=== PATIENT | female | born 1930 | race Caucasian/White ===

== ENCOUNTER 2017-06-08 13:04 | Inpatient (IN) | payer MEDICARE, OTHER ==
[~2017-06-08] VITALS: Ht 152.4 cm; Wt 48.9 kg
[~2017-06-08 13:04] MED LIST: ASPI81TA85 PO; BACT800T5 PO; CART300C PO; DULC5TAB PO; FLOM5CAP PO; HYDR-3713 PO; HYDR25TAB PO; LISI30TA4 PO; LISI40TAB PO; NORV5TAB PO; PERCOCET PO; ZOFR4TAB3 PO
[2017-06-08 14:45] VITALS: BP 168/78
[2017-06-08] MEDS ORDERED: ACETAMINOPHEN TAB 650MG DOSE (2X325MG) PO PRN (15:15)
[2017-06-08] MEDS ORDERED: ONDANSETRON 4MG/2ML VIAL (J2405) IV PRN (15:15)
[2017-06-08] MEDS: PERCOCET 5MG/325MG TAB PO PRN ×2 (15:38→21:54)
[2017-06-08 16:00] VITALS: BP 193/80
[2017-06-08 16:07] LABS: BASO % 0.3 % (0.0-1.0); EOS # 0.1 10^3/uL (0.0-0.50); EOS % 0.8 % (0.0-3.0); IMMATURE GRANULOCYTE % 0.3 % (0-0); LYMPH # 1.1 10^3/uL (1.5-4.5); LYMPH % 9.2 % (24.0-44.0); MEAN CORPUSCULAR HEMOGLOBIN 31.3 pg (27.0-33.0); MEAN CORPUSCULAR HGB CONC 32.6 g/dl (32.0-36.5); MEAN CORPUSCULAR VOLUME 95.8 fl (80.0-96.0); MONO # 1.1 10^3/uL (0.0-0.8); MONO % 9.4 % (0.0-5.0); NEUTROPHILS # 9.6 10^3/uL (1.8-7.7); PLATELET COUNT, AUTOMATED 281 10^3/uL (150-450); RED CELL DISTRIBUTION WIDTH 13.4 % (11.5-14.5)
[2017-06-08 16:17] LABS: INR 0.97
[2017-06-08 16:45] LABS: ALBUMIN/GLOBULIN RATIO 0.94 (1.00-1.93); ALKALINE PHOSPHATASE 86 U/L (45-117); ALT/SGPT 34 U/L (12-78); ANION GAP 6 MEQ/L (8-16); AST/SGOT 21 U/L (7-37); BILIRUBIN,TOTAL 0.5 MG/DL (0.2-1.0); BLOOD UREA NITROGEN 33 MG/DL (7-18); CALCIUM LEVEL 8.8 MG/DL (8.8-10.2); CARBON DIOXIDE LEVEL 26 MEQ/L (21-32); CHLORIDE LEVEL 111 MEQ/L (98-107); CREATININE FOR GFR 1.49 MG/DL (0.55-1.02); GLOMERULAR FILTRATION RATE 35.4 (>32); GLUCOSE, FASTING 95 MG/DL (83-110); MAGNESIUM LEVEL 1.8 MG/DL (1.8-2.4); POTASSIUM SERUM 4.9 MEQ/L (3.5-5.1); SODIUM LEVEL 143 MEQ/L (136-145); T UPTAKE 36 % (30-39); TOTAL PROTEIN 6.2 GM/DL (6.4-8.2)
[2017-06-08] MEDS ORDERED: AMLO5TAB2 PO (17:17)
[2017-06-08] MEDS ORDERED: CHOL4PW PO (17:17)
[2017-06-08] MEDS ORDERED: FLORCAP10 PO (17:17)
[2017-06-08] MEDS ORDERED: LISI40TAB PO (17:17)
[2017-06-08] MEDS ORDERED: PROZ10CA7 PO (17:17)
[2017-06-08] MEDS ORDERED: ARTI99.0 OU (17:17)
--- NOTE | 2017-06-08 17:35 | HPEPDOC ---
General Date of Admission Jun 08, 2017 at 15:00 Primary Care Physician: A Other Providers Cherie Brito Chief Complaint The patient is a 87-year-old female admitted with a reason for visit of Miltiple Rib Fractures. History of Present Illness PCP is Dr. Weiner Ms. Sen is an 87 y/o female with past medical history of hepatitis C, HTN and depression who presents as a transfer patient from [facility] due to multiple left sided rib fracture and hydrothorax. Two days ago the patient was walking outside her assisted living facility with her walker when the wheel went off the edge and she fell onto a small metal trash can which made contact with her upper left thorax/rib cage. She did not hit her head, suffer LOC nor did she have any CP, SOB, palpitations, light headedness or change in vision nor headache prior to the fall. She states it was entirely a "mechanical fall". She was taken to [facility] today after the pain in her left rib cage was progressively getting worse with ambulation/movement and inspiration. [facility] did not have the capability to handle such a case so the decision was made to have her transferred to [facility] so that Dr. Garcia could evaluate her. Denies n/v, muscle aches or chills, denies recent fevers or abdominal pain. She usually has loose stool as she takes cholestyramine powder with her food. Denies increase frequency in urination, nor pain with urination or blood in urine. Denies blood in or dark stools. 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 She does admit that her left foot hurts and is a little bit swollen from where she tripped, she may have rolled on it. She has no history of seizure, CO or stroke and did not have bowel or bladder incontinence during any of her falls. She states currently that her left rib cage area on the side and back hurt when she moves or changes position or when she takes a deep breath in, it is a sharp pain and quickly abates. She has not been weak nor fatigued lately. She is compliant with her medications and denies any forgetfullness nor change in mentation, as per her daughter. She states she has never drank alcohol or smoked and denies history of IVDU., states that greater than 50 years ago she was diagnosed with Hepatitis C from "eating bad seafood in [place]"., she has never received treatment. Home Medications Scheduled (Florajen3) 1 Cap Cap, 1 CAP PO DAILY, (Reported) Amlodipine Besylate (Amlodipine Besylate) 5 Mg Tab, 5 MG PO DAILY, (Reported) Aspirin (Aspir-81) 81 Mg Tab, 81 MG PO DAILY, (Reported) Cholestyramine (Cholestyramine) 4 Gm Pow, 4 GM PO AC, (Reported) Fluoxetine HCl (Prozac) 10 Mg Cap, 10 MG PO DAILY, (Reported) Hydrochlorothiazide (Hydrochlorothiazide) 25 Mg Tab, 25 MG PO 2XW, (Reported) TUES & THURS Lisinopril (Lisinopril) 40 Mg Tab, 40 MG PO DAILY, (Reported) Scheduled PRN Artificial Tears (Artificial Tears) 1.4 % Alesha, 1 DROP OU QID PRN for DRY EYES, ( Reported) Allergies Coded Allergies: No Known Allergies (Unverified , 03/28/15) Past Medical History Medical History htn depression Surgical History appendectomy hysterectomy cholecystectomy b/l cataract surgery Family History Significant Family History: No pertinent family hx Social History * Smoker: Denies Drugs: denies Recent Travel/Sick Contacts: Denies: Recent travel Psychosocial History: No pertinent psych hx Review of Symptoms Constitutional: Reports: Malaise, Denies: Chills, Fever, Night Sweats, Weakness, Fatigue, Weight Loss Eyes: Denies: Pain ENT: Denies: Head Aches Skin: Denies: Rash, Lesions, Jaundice, Bruising Pulmonary: Denies: Dyspnea, Cough Cardiovascular: Denies: Chest Pain, Palpitations, Orthopnea, Edema, Lt Headedness Gastrointestinal: Denies: Nausea, Vomiting, Abdominal Pain, Diarrhea, Constipation Genitourinary: Denies: Dysuria Hematologic: Denies: Bruising, Bleeding Excessively, Petecchia, Purpura Endocrine: Denies: Polydipsia Musculoskeletal: Reports: Foot Pain (left foot swollen and achey all over), Other Symptoms (pain to inspiration and movement of left upper rib cage side and back) Neurological: Denies: Weakness, Numbness, Incoordination, Change in speech Psych: Reports: Mood Normal Physical Examination General Exam: Positive: Alert, Cooperative, Moderate Distress (from pain in rib cage) Eye Exam: Positive: Conjunctiva & lids normal, EOMI, Negative: Sclera icteric, Ptosis ENT Exam: Positive: Atraumatic, Mucous membr. moist/pink, Pharynx Normal, Tongue Midline, Nares Patent, Negative: Pharyngeal Edema Neck Exam: Positive: Supple Chest Exam: Positive: Normal air movement, Other (left upper rib cage tenderness along lateral and superior posterior aspect of thorax), Negative: Rales, Rhonchi, Wheezing, Diminished Heart Exam: Positive: Rate Normal, Normal S1, Normal S2, Negative: Gallops, Murmurs, Rubs Telemetry: Positive: No significant arrhythmia Abdomen Exam: Positive: Normal bowel sounds, Soft, Negative: Tenderness, Hepatospenomegaly, Mass Extremity Exam: Positive: Normal pulses, Tenderness (left foot), Swelling ( left foot), Negative: Clubbing, Cyanosis, Edema Skin Exam: Negative: Rash, Breakdown Neuro Exam: Positive: Normal Speech Psych Exam: Positive: Mental status NL Vital Signs Vital Signs Date Time Temp Pulse Resp B/P (MAP) Pulse Ox O2 Delivery O2 Flow Rate FiO2 06/08/17 16:15 16 06/08/17 16:00 97.6 65 193/80 (117) 97 Nasal Cannula 2.0 Laboratory Data Labs 24H Laboratory Tests 2 06/08/17 15:58: Immature Granulocyte % (Auto) 0.3H, White Blood Count 12.0H, Red Blood Count 3.55L, Hemoglobin 11.1L, Hematocrit 34.0L, Mean Corpuscular Volume 95.8, Mean Corpuscular Hemoglobin 31.3, Mean Corpuscular Hemoglobin Concent 32.6, Red Cell Distribution Width 13.4, Platelet Count 281, Neutrophils (%) (Auto) 80.0H, Lymphocytes (%) (Auto) 9.2L, Monocytes (%) (Auto) 9.4H, Eosinophils (%) (Auto) 0.8, Basophils (%) (Auto) 0.3, Neutrophils # (Auto) 9.6H, Lymphocytes # (Auto) 1.1L, Monocytes # (Auto) 1.1H, Eosinophils # (Auto) 0.1, Basophils # (Auto) 0.0 , Immature Granulocyte # (Auto) 0.0, Nucleated Red Blood Cells % (auto) 0.0, Prothrombin Time 13.0, Prothromb Time International Ratio 0.97, Activated Partial Thromboplast Time 25.4L, Anion Gap 6L, Glomerular Filtration Rate 35.4, Blood Urea Nitrogen 33H, Creatinine 1.49H, Sodium Level 143, Potassium Level 4.9 , Chloride Level 111H, Carbon Dioxide Level 26, Calcium Level 8.8, Aspartate Amino Transf (AST/SGOT) 21, Alanine Aminotransferase (ALT/SGPT) 34, Total Creatine Kinase 94, Alkaline Phosphatase 86, Total Bilirubin 0.5, Total Protein 6.2L, Albumin 3.0L, Magnesium Level 1.8, Creatine Kinase MB 1.0, Creatine Kinase MB Relative Index 1.06, Troponin I < 0.02, Albumin/Globulin Ratio 0.94L, Thyroid Stimulating Hormone (TSH) 3.210, Free Thyroxine Index 3.6, Thyroxine (T4 ) 10.0, Triiodothyronine (T3) Uptake 36 CBC/BMP Laboratory Tests 06/08/17 15:58 Red Blood Count 3.55 L, Mean Corpuscular Volume 95.8, Mean Corpuscular Hemoglobin 31.3, Mean Corpuscular Hemoglobin Concent 32.6, Red Cell Distribution Width 13.4, Neutrophils (%) (Auto) 80.0 H, Lymphocytes (%) (Auto) 9.2 L, Monocytes (%) (Auto) 9.4 H, Eosinophils (%) (Auto) 0.8, Basophils (%) ( Auto) 0.3, Neutrophils # (Auto) 9.6 H, Lymphocytes # (Auto) 1.1 L, Monocytes # ( Auto) 1.1 H, Eosinophils # (Auto) 0.1, Basophils # (Auto) 0.0, Calcium Level 8.8 , Aspartate Amino Transf (AST/SGOT) 21, Alanine Aminotransferase (ALT/SGPT) 34, Total Creatine Kinase 94, Alkaline Phosphatase 86, Total Bilirubin 0.5, Total Protein 6.2 L, Albumin 3.0 L Assessment/Plan 87 y/o female transferred from [facility] with multiple rib fracture and hydrothorax. 1. Multiple rib fracture with associated hydrothorax Have review images [facility] Dr. Garcia has been consulted, greatly appreciate his help. Will see the patient tonight. The patient will have pain control with morphine and percocet. For expansion of the lung ,will schedule ez pap and incentive spirometry. PT/OT consulted as well. Dr. Garcia will decide if epidural is necessary. C/w oxygen therapy orders. Will order b/l Doppler u/s to r/o DVT. 2. HTN -can continue with patients home medications of amlodipine 5 mg daily, lisinopril 40 mg daily and baby aspirin. 3. Depression -can continue with patients home fluoxetine 10 mg daily 4. Will hold on DVT prophylaxis until tomorrow, in case patient will need surgical intervention. SCD/TEDS for now. Plan / VTE VTE Prophylaxis Ordered?: No (hold off untill tomorrow, patient may need surgicial intervention) GME ATTESTATION GME ATTESTATION My faculty preceptor for this patient encounter was physically present during the encounter and was fully available. All aspects of the patient interview, examination, medical decision making process, and medical care plan development were reviewed and approved by the faculty preceptor. The faculty preceptor is aware and concurs with the plan as stated in the body of this note and will attest to such by his/her cosignature. ATTENDING NOTE I have both independently examined this patient as well as reviewed the H&P. I have discussed in detail with the resident the findings and plan of treatment as documented in the residents note. I will continue to follow the patient and offer further guidance to the patients care as necessary during this hospital stay. CARA Diaz MD, DO Jun 08, 2017 17:35 DYLAN MAURER MD Jun 11, 2017 11:41
[2017-06-08] MEDS ORDERED: POLYVINYL ALCOHOL OPHTH SOLN 15 ML(LIQUITEARS) OU PRN (17:45)
[2017-06-08] MEDS: LR 1,000 ML IV SCH (17:50)
[2017-06-08] MEDS: ASPIRIN 81 MG ENTERIC TAB PO SCH (17:58)
[2017-06-08] MEDS: amLODIPine 5 MG TAB PO SCH (17:59)
[2017-06-08] MEDS ORDERED: LEVALBUTEROL 1.25 MG/0.5 ML CONCENTRATE NEB NEB PRN (18:30)
[2017-06-08 18:32] LABS: ABG BASE EXCESS -3.1 (-2.0-2.0); ABG HCO3 21.7 MEQ/L (22.0-26.0); ABG PARTIAL PRESSURE CO2 37.8 mmHg (35.0-45.0); ABG PARTIAL PRESSURE O2 118.2 mmHg (75.0-100.0); ABG STANDARD HCO3 21.9 MEQ/L (22.0-26.0); ABG TOTAL CO2 22.9 MEQ/L (23.0-31.0); ABG pH (ARTERIAL) 7.377 UNITS (7.350-7.450)
[2017-06-08] MEDS: LEVALBUTEROL 1.25 MG/0.5 ML CONCENTRATE NEB NEB SCH (19:42)
[2017-06-08 20:00] VITALS: BP 145/67
--- NOTE | 2017-06-08 20:00 | CR ---
DATE OF CONSULTATION: 06/08/2017 The patient is seen at the request of Dr. Vaca of the hospitalist service for multiple rib fractures and what is probably a small hemothorax. The patient is an 87-year-old white female who on i.e. three days ago, tripped on some wet grass as she was transitioning from concrete sidewalk to the wet grass and lost her balance and fell, hitting a metal garbage can. She did not lose consciousness. She did not feel dizzy before the fall. She merely slipped on the wet surface. She was helped up and at first she had no pain, and went into the house. Over the course of the last 48 hours, her pain has increased to such an extent this morning that she was having trouble taking a deep breath and cough. The breathing was difficult because of the pain. Prior to this, she had no cough or sputum production and certainly no hemoptysis. Since then, she has had no hemoptysis. There has been no fever, chills or sweats. There is no dysphagia and she has maintained her weight, perhaps losing 1 pound over the last year. There is no dysphagia. No choking with swallowing. She now complains of pain, particularly when she takes a deep breath in the lower lateral left hemithorax. 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 She wears a special support shoe to keep her extremity length fairly equal. Nonetheless, according to her daughter, she has a foot pronation and lateral deviation. It may have been the cause of her fall. She consistently uses a rolling walker. PAST MEDICAL ILLNESSES: 1. Hypertension. 2. There is a very vague history of her having hepatitis when she was very young, over 70 years ago. She never turned yellow. The diagnosis is essentially insecure in that we do not know if she had hepatitis or not. 3. She is treated for depression. PAST SURGICAL HISTORY: Appendectomy and hysterectomy in the remote past. Appendectomy as a child. She has also had a cholecystectomy two years ago with what sounds like to be an endoscopic retrograde cholangiopancreatography (ERCP) the day following. She has had bilateral cataract surgery. ALLERGIES: None. TRAVEL HISTORY: She has been to [facility] near [place] in the remote past and also [place]. No foreign travel. EXPOSURES: No dogs, cats or birds at home. No exposures to tuberculosis. OCCUPATIONAL HISTORY: Has worked in the last 35 years as the [employer]. There is no asbestos exposure that she knows of. MEDICATIONS AT HOME: Include: - amlodipine 5 mg daily - aspirin 81 mg daily - cholestyramine 4 mg daily - Prozac 10 mg daily - hydrochlorothiazide 25 mg Mondays, Tuesdays, and - Lisinopril 40 mg daily REVIEW OF SYSTEMS: CONSTITUTIONAL: See history of present illness. EYES: Wears glasses. Has had bilateral cataracts done. No amaurosis fugax, i.e. transient monocular blindness. No diplopia. NOSE: Without epistaxis. MOUTH: Has her own teeth but multiple missing teeth and with upper partial dentures. She tries not to wear them as they are uncomfortable. RESPIRATORY: Prior to the accident, without shortness of breath, without cough or sputum production. See history of present illness. CARDIAC: Without prior myocardial infarctions or palpitations or tachycardias. Does have swelling in both feet, which she has had for a very long time. She does not carry the diagnosis of congestive heart failure. GASTROINTESTINAL: Without nausea and vomiting, but does have constant diarrhea since her cholecystectomy and ERCP two years ago. She takes cholestyramine. There is no melena. No hematochezia. No abdominal pain. No hematemesis. There is a vague history of hepatitis, but it is certainly equivocal diagnosis. GENITOURINARY: Without dysuria or hematuria. Without prior history of renal stones. ENDOCRINE: Without diabetes. Without thyroid disease. PSYCHIATRIC: Is treated for depression with Prozac. She also has anxieties, according to her daughter. No psychoses. NEUROLOGIC: Without paresthesias, paralyses or seizures. Without transient monocular blindness. PHYSICAL EXAMINATION: Well developed, well nourished, white female in mild distress from chest pain, particularly with deep breathing. VITAL SIGNS: Temperature 97.6, pulse is 65 and in sinus rhythm, respiratory rate is 20 without the use of accessory muscles, who is 97% saturated on 2 liters nasal cannula, and blood pressure is 193/80. EYES: Pupils are equal, round and reactive to light. Extraocular motions intact. Sclerae nonicteric. NOSE: Without deformity. MOUTH: Has multiple missing teeth but mucous membranes are pink and moist. Lips and commissures without lesions. There is no thrush. The teeth she has look to be in good repair. NECK: Supple. There is no jugular venous distention (JVD). No subcutaneous emphysema. Trachea is midline. She has 2+ carotid upstrokes without bruits. There is no thyromegaly or lymphadenopathy. LUNGS: Show decreased breath sounds in the left lower hemithorax with dullness to percussion at the base of the left hemithorax. She has a palpable deformity underneath the scapula. She has pain to deep palpation but not an extraordinary amount. Right lung shows normal vesicular sounds with a percussion note that is full to the diaphragm, without wheezes, rhonchi or rales. CARDIAC: Exam shows distant heart sounds without murmurs, clicks, gallops or rubs. I cannot feel her PMI. S1, S2 are normal. ABDOMEN: Soft, nontender . Bowel sounds are positive. There is no hepatomegaly. No costovertebral angle tenderness. There are no aortic or renal bruits. EXTREMITIES: Show her left leg to have 3+ ankle edema and 1+ pretibial edema. The right leg shows maybe 1+ ankle edema and trace pretibial edema. There is no calf tenderness. No differential swelling of the upper extremities. SKIN: Warm, dry and perfused without cyanosis or mottling, including that of the nail beds and knees. NEUROLOGIC: Shows II-XII intact. Gross motor and gross sensation intact. Gait is not tested. PSYCHIATRIC: Shows her to be awake, alert, oriented times three with appropriate mood and affect and conversational. Her white count today is 12.0 with hemoglobin and hematocrit of 11.1 and 34.0 and a platelet count of 281. Differential shows 80% neutrophils, 9% lymphocytes, 9% monocytes. There are no immature forms and no toxic granulations. Chemistries show essentially normal electrolytes with a BUN and creatine of 33 and 1.49, glucose of 95, calcium 8.8. AST and ALT are normal at 21 and 34, respectively. Troponin is less than 0.02 with an albumin of 3.0. TSH is 3.2. Her PT/INR is 13.0 and 0.97, respectively, with a PTT of 25 seconds. Her chest x-ray done portably on admission today shows what looks to be an opacity in the left hemithorax laterally and in the middle of the chest with multiple rib fractures, probably represents hematoma. She has blunting of the left costophrenic angle. CT scan done at [facility] shows multiple rib fractures of ribs 4, 5, 6, 7, 8, 9, 10, and possibly 11. Rib #8 looks to be severely displaced and into the lung parenchyma. I do not see pulmonary hemorrhage per se, however. There is no pneumothorax. There is some fluid in the costophrenic angle, which no doubt represents blood. She does have a very mild lung contusion where the 8th rib looks to be sticking into the lung. The great vessels are intact. There is no pericardial effusion. The study is done without contrast. I see no liver lesions. She does look to have somewhat of an enlarged liver. Spleen is intact. Right and left adrenals are intact. She probably has a cyst on the right kidney , although its density is not as dark as I would expect a fluid filled density to be. Hounsfield units measures somewhere between 0 and 12. Therefore, it is no doubt a cyst. She also looks to have an old healed fracture of the right 9th rib. There are no mediastinal masses. I do not see mediastinal lymphadenopathy. Coronal view does not show a scoliosis. There is no sagittal view. She does however have an asymmetry of the left and right chest with a possible rotation of her ribs to the right. IMPRESSION: 1. Multiple rib fractures, one flail segment. 2. Small lung contusion. 3. Hypertension. 4. Hemothorax. PLAN/DISCUSSION: At this point in time, the mainstay of care should be pain control. Right now she is doing well with oral pain control, which includes Percocet. If we can get her up and around walking and taking a deep breath and coughing and if oral pain medicine will hold her, we will stick with that. We can increase the pain strategy to a LEGAL ASSISTANT and if that does not work then an epidural. We will place her on deep vein thrombosis (DVT) prophylaxis. We will also obtain an ultrasound of her legs, as there is no good reason for swelling. The swelling, however, has been long-standing and probably does not represent a chronic DVT. We will do chest expansion therapy with incentive spirometry. JONO
[2017-06-08] MEDS: SENOKOT S TAB PO SCH (20:24)
[2017-06-09] VITALS: BP 160/73
[2017-06-09] MEDS: LEVALBUTEROL 1.25 MG/0.5 ML CONCENTRATE NEB NEB SCH ×4 (01:08→20:20)
[2017-06-09 04:00] VITALS: BP 177/77
[2017-06-09] MEDS: LR 1,000 ML IV SCH (04:38)
[2017-06-09] MEDS: PERCOCET 5MG/325MG TAB PO PRN ×3 (04:38→11:49)
[2017-06-09 06:06] LABS: MEAN CORPUSCULAR HEMOGLOBIN 30.3 pg (27.0-33.0); MEAN CORPUSCULAR HGB CONC 31.9 g/dl (32.0-36.5); PLATELET COUNT, AUTOMATED 267 10^3/uL (150-450); RED CELL DISTRIBUTION WIDTH 13.4 % (11.5-14.5); WHITE BLOOD COUNT 10.9 10^3/uL (4.0-10.0)
[2017-06-09 06:07] LABS: ABG BASE EXCESS -5.3 (-2.0-2.0); ABG HCO3 19.1 MEQ/L (22.0-26.0); ABG PARTIAL PRESSURE CO2 33.1 mmHg (35.0-45.0); ABG PARTIAL PRESSURE O2 91.8 mmHg (75.0-100.0); ABG STANDARD HCO3 20.1 MEQ/L (22.0-26.0); ABG TOTAL CO2 20.1 MEQ/L (23.0-31.0); ABG pH (ARTERIAL) 7.379 UNITS (7.350-7.450)
[2017-06-09 06:21] LABS: CALCIUM LEVEL 8.6 MG/DL (8.8-10.2); CREATININE FOR GFR 1.23 MG/DL (0.55-1.02); GLOMERULAR FILTRATION RATE 44.2 (>32); MAGNESIUM LEVEL 1.6 MG/DL (1.8-2.4)
[2017-06-09 07:55] VITALS: BP 154/70
--- NOTE | 2017-06-09 08:06 | REP ---
CHEST, PORTABLE: AP portable view of the chest is performed. There are multiple left rib fractures. I suspect a small left apical pneumothorax. There is left basilar atelectasis/infiltrate and there may be a small left effusion. There is mild cardiomegaly. There is ectasia and tortuosity of the thoracic aorta. There is mild discoid atelectasis in the right lung base. Signed by Sage Zapata MD 06/09/2017 05:27 P
[2017-06-09] MEDS: CHOLESTYRAMINE 4 GM PWD PKT PO SCH ×4 (09:11→16:40)
[2017-06-09] MEDS: amLODIPine 5 MG TAB PO SCH (09:12)
[2017-06-09] MEDS: ASPIRIN 81 MG ENTERIC TAB PO SCH (09:12)
[2017-06-09] MEDS: MAGNESIUM OXIDE 400 MG TAB (MAG-OX) PO SCH ×2 (09:12→21:01)
[2017-06-09] MEDS: PANTOPRAZOLE 40MG TAB (PROTONIX) PO SCH (09:12)
[2017-06-09] MEDS: LISINOPRIL 40 MG TAB PO SCH (09:12)
[2017-06-09] MEDS: SENOKOT S TAB PO SCH ×2 (09:12→21:01)
[2017-06-09] MEDS: FLUoxetine 10 MG CAP PO SCH (09:12)
--- NOTE | 2017-06-09 10:36 | REP ---
Bilateral lower extremity Duplex Doppler venous ultrasound: Real time compression and duplex Doppler interrogation of the bilateral lower extremity deep venous system is performed. Bilaterally, the common femoral, superficial femoral and popliteal veins are fully compressible with transducer pressure and demonstrate normal spontaneous and phasic flow, without evidence of deep venous thrombosis. Impression: No evidence of deep venous thrombosis of the bilateral lower extremity femoral popliteal venous system. Signed by Sage Zapata MD 06/09/2017 10:28 A
[2017-06-09 12:00] VITALS: BP 134/63
--- NOTE | 2017-06-09 12:28 | REP ---
TWO VIEW CHEST: Two views of the chest are performed and compared to prior single view chest 06/08/2017. Multiple left rib fractures are again noted. I do not see a definite pneumothorax on today's exam. Cardiomediastinal silhouette is unchanged. Left basilar atelectasis/infiltrate and probable small left effusion all appear unchanged. There appears to be mild atelectatic change in the right lung base. Signed by Sage Zapata MD 06/09/2017 05:35 P
--- NOTE | 2017-06-09 13:05 | IPNPDOC ---
Subjective Date Seen The patient was seen on 06/09/17. Subjective Chief Complaint/HPI Patient seen and examined at the bedside. States that her pain is relatively well controlled this morning. Denies any acute respiratory complaints. Objective Physical Examination General Exam: Positive: Alert, Cooperative, No Acute Distress Eye Exam: Negative: Sclera icteric ENT Exam: Positive: Atraumatic, Mucous membr. moist/pink Neck Exam: Negative: JVD Chest Exam: Positive: Other (left lower rib cage tenderness upon palpation) Heart Exam: Positive: Rate Normal, Normal S1, Normal S2 Abdomen Exam: Positive: Soft, Negative: Tenderness Extremity Exam: Positive: Swelling (left foot, no pain on palpation), Negative: Tenderness Skin Exam: Negative: Rash, Breakdown Neuro Exam: Positive: Normal Speech Psych Exam: Positive: Oriented x 3 Assessment /Plan Plan/VTE VTE Prophylaxis Ordered?: Yes Plan Multiple Left Sided Rib Fractures Small left sided Hemothorax noted on imaging Repeat CXR from this AM pending CT Surgery input appreciated--we will cont to provide the patient supportive care with pain control She does appear to be relatively comfortable this morning at the bedside, and is saturating 94% on RA Cont Incentive spirometry, ez-pap therapy PT/OT consulted for functional optmization We will f/u with CT Surgery recs Hypertension, stable Cont current regimen Depression Cont fluoxetine Lower Extremity Edema I do suspect that this is chronic in nature U/S of the lower extremities negative for DVT GERD Prophylaxis Cont PPI DVT Prophylaxis Heparin SC Dispo--pending clinical improvement, PT/OT Eval VS, I&O, 24H, Fishbone Vital Signs/I&O Vital Signs Date Time Temp Pulse Resp B/P (MAP) Pulse Ox O2 Delivery O2 Flow Rate FiO2 06/09/17 12:00 97.9 61 14 134/63 (86) 90 Room Air 06/09/17 07:15 2.0 I&O- Last 24 Hours up to 6 AM 06/10/17 06:00 Intake Total 240 ml Output Total 100 ml Balance 140 ml Laboratory Data 24H LABS Laboratory Tests 2 06/08/17 15:58: Immature Granulocyte % (Auto) 0.3H, White Blood Count 12.0H, Red Blood Count 3.55L, Hemoglobin 11.1L, Hematocrit 34.0L, Mean Corpuscular Volume 95.8, Mean Corpuscular Hemoglobin 31.3, Mean Corpuscular Hemoglobin Concent 32.6, Red Cell Distribution Width 13.4, Platelet Count 281, Neutrophils (%) (Auto) 80.0H, Lymphocytes (%) (Auto) 9.2L, Monocytes (%) (Auto) 9.4H, Eosinophils (%) (Auto) 0.8, Basophils (%) (Auto) 0.3, Neutrophils # (Auto) 9.6H, Lymphocytes # (Auto) 1.1L, Monocytes # (Auto) 1.1H, Eosinophils # (Auto) 0.1, Basophils # (Auto) 0.0 , Immature Granulocyte # (Auto) 0.0, Nucleated Red Blood Cells % (auto) 0.0, Prothrombin Time 13.0, Prothromb Time International Ratio 0.97, Activated Partial Thromboplast Time 25.4L, Anion Gap 6L, Glomerular Filtration Rate 35.4, Blood Urea Nitrogen 33H, Creatinine 1.49H, Sodium Level 143, Potassium Level 4.9 , Chloride Level 111H, Carbon Dioxide Level 26, Calcium Level 8.8, Aspartate Amino Transf (AST/SGOT) 21, Alanine Aminotransferase (ALT/SGPT) 34, Total Creatine Kinase 94, Alkaline Phosphatase 86, Total Bilirubin 0.5, Total Protein 6.2L, Albumin 3.0L, Magnesium Level 1.8, Creatine Kinase MB 1.0, Creatine Kinase MB Relative Index 1.06, Troponin I < 0.02, Albumin/Globulin Ratio 0.94L, Thyroid Stimulating Hormone (TSH) 3.210, Free Thyroxine Index 3.6, Thyroxine (T4 ) 10.0, Triiodothyronine (T3) Uptake 36 06/08/17 18:24: Blood Gas Bicarbonate Standard 21.9L, Arterial Blood pH 7.377, Arterial Blood Partial Pressure CO2 37.8, Arterial Blood Partial Pressure O2 118.2H, Arterial Blood Total CO2 22.9L, Arterial Blood HCO3 21.7L, Arterial Blood Base Excess - 3.1L, Arterial Blood Oxygen Saturation 98.6 06/09/17 05:37: Nucleated Red Blood Cells % (auto) 0.0, Anion Gap 7L, Glomerular Filtration Rate 44.2, Blood Urea Nitrogen 30H, Creatinine 1.23H, Sodium Level 143, Potassium Level 4.0, Chloride Level 111H, Carbon Dioxide Level 25, Calcium Level 8.6L, Magnesium Level 1.6L 06/09/17 05:54: Blood Gas Bicarbonate Standard 20.1L, Arterial Blood pH 7.379, Arterial Blood Partial Pressure CO2 33.1L, Arterial Blood Partial Pressure O2 91.8, Arterial Blood Total CO2 20.1L, Arterial Blood HCO3 19.1L, Arterial Blood Base Excess - 5.3L, Arterial Blood Oxygen Saturation 97.1 CBC/BMP Laboratory Tests 06/08/17 15:58 Red Blood Count 3.55 L, Mean Corpuscular Volume 95.8, Mean Corpuscular Hemoglobin 31.3, Mean Corpuscular Hemoglobin Concent 32.6, Red Cell Distribution Width 13.4, Neutrophils (%) (Auto) 80.0 H, Lymphocytes (%) (Auto) 9.2 L, Monocytes (%) (Auto) 9.4 H, Eosinophils (%) (Auto) 0.8, Basophils (%) ( Auto) 0.3, Neutrophils # (Auto) 9.6 H, Lymphocytes # (Auto) 1.1 L, Monocytes # ( Auto) 1.1 H, Eosinophils # (Auto) 0.1, Basophils # (Auto) 0.0, Calcium Level 8.8 , Aspartate Amino Transf (AST/SGOT) 21, Alanine Aminotransferase (ALT/SGPT) 34, Total Creatine Kinase 94, Alkaline Phosphatase 86, Total Bilirubin 0.5, Total Protein 6.2 L, Albumin 3.0 L 06/09/17 05:37 Red Blood Count 3.40 L, Mean Corpuscular Volume 95.0, Mean Corpuscular Hemoglobin 30.3, Mean Corpuscular Hemoglobin Concent 31.9 L, Red Cell Distribution Width 13.4, Calcium Level 8.6 L JAY GEORGES MD Jun 09, 2017 13:05
[2017-06-09 16:00] VITALS: BP 118/56
[2017-06-09 19:58] VITALS: BP 124/60
[2017-06-09] MEDS: HEPARIN SOD (PORCINE) 5000 UNITS/ML VIAL SQ SCH (21:02)
[2017-06-10] VITALS (7 sets, daily range): BP systolic 129–158; BP diastolic 58–92
[2017-06-10] MEDS: LEVALBUTEROL 1.25 MG/0.5 ML CONCENTRATE NEB NEB SCH ×4 (01:31→21:28)
[2017-06-10] MEDS: PERCOCET 5MG/325MG TAB PO PRN ×4 (04:36→20:47)
[2017-06-10 06:01] LABS: MEAN CORPUSCULAR HEMOGLOBIN 30.6 pg (27.0-33.0); MEAN CORPUSCULAR VOLUME 95.6 fl (80.0-96.0); PLATELET COUNT, AUTOMATED 276 10^3/uL (150-450); RED CELL DISTRIBUTION WIDTH 13.6 % (11.5-14.5); WHITE BLOOD COUNT 9.4 10^3/uL (4.0-10.0)
[2017-06-10 06:21] LABS: CALCIUM LEVEL 8.6 MG/DL (8.8-10.2); CREATININE FOR GFR 1.5 MG/DL (0.55-1.02); GLOMERULAR FILTRATION RATE 35.1 (>32); MAGNESIUM LEVEL 1.8 MG/DL (1.8-2.4); POTASSIUM SERUM 4.2 MEQ/L (3.5-5.1)
--- NOTE | 2017-06-10 07:01 | IPN ---
DATE: 06/09/2017 Ms. Sen has had a fairly uneventful 24 hours. She is now sitting comfortably in a chair after having increased her oral pain medications to two Percocet every 4 hours as needed pain. She is breathing well. She walked a little bit out in the halls with her walker; however, her legs are still swollen so she cannot get her prosthesis on her left foot. Her vital signs show a T-max of 98.4, with a heart rate that ranges between 74 and 79 in a sinus rhythm, a respiratory rate that is constant at 18, who is 94% saturated on room air and whose blood pressure is ranging between 154/72 to 146/67. Intake and output the past 24 hours has been recorded as 300 in and 100 out for a positivity of 200 mL. Today, she did take in a little more oral intake of 420 mL. She weighs 50.4 kg today compared to 50.2 kg yesterday. On physical examination, she has equal breath sounds on either side. Percussion notes are full to the diaphragm. I hear no wheezes, rhonchi or rales. Cardiac exam is without murmurs, clicks, gallops, or rubs. I cannot feel her PMI. S1, S2 are normal. Abdomen is soft and nontender. Bowel sounds are positive, but hypoactive. There is no hepatomegaly. Extremities show 3+ ankle and foot edema on the left with 1+ pretibial edema. The right side shows no pretibial edema with 1+ foot edema on the right foot. There is no calf tenderness. No differential swelling of the upper extremities. Skin is warm, dry and perfused, without cyanosis or mottling, including that of the nail beds and knees. Neck is supple. There is no jugular venous distention. No subcutaneous emphysema. Trachea is midline. Mouth shows her mucous membranes to be pink and moist. Lips and commissures are without lesions. There is no thrush. Eyes show her pupils to be equal and reactive. Extraocular movements intact. Sclerae nonicteric. Neurologic shows II-XII intact along with gross motor and gross sensation intact. Gait is not tested. Psychiatric shows her to be awake, alert, and oriented times three with appropriate mood and affect and conversational. Her white count today is down to 10.9 from 12.0 yesterday. Hemoglobin and hematocrit are 10.3 and 32.3, slightly down from 11.1 and 34.0 yesterday. Platelet count is 267. There is no differential on her today. Electrolytes are normal with an improvement in her BUN and creatinine to 30 and 1.23 from 33 and 1.49 yesterday. Her glucose is 111, calcium 8.8 and magnesium 1.6. Her chest x-ray today shows her lung fully expanded to the chest wall. There is some mild blunting of the left costophrenic angle. The multiple fractured ribs are easily seen. There is no subcutaneous emphysema. 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 Lateral chest x-ray shows a little bit of fluid in the major fissure. The posterior costophrenic angle is slightly blunted. I see no other infiltrates. IMPRESSION: 1. Multiple fractured ribs with one flail segment of 4, 5, 6, 7, 8, 9, and possibly 11. 2. Small lung contusion, resolving. 3. Hypertension. 4. Hemothorax, small. PLAN AND DISCUSSION: I am grateful that her pain is being well controlled. I think then if we can get her up and around and mobilized she should be able to go home; however, we will need to have a patient safety evaluation. I am grateful that her creatinine is improving. I do not have a good explanation for her leg edema and she is undergoing an ultrasound of her leg today. She does not look to be in clinical congestive failure. Her albumin yesterday was 3.0 and while low, not extraordinarily low.
--- NOTE | 2017-06-10 08:41 | REP ---
Clinical: Trauma. Rib fractures. Followup hemothorax. Comparison: 06/09/2017. Findings: Multiple left sided rib fractures are unchanged. Left lower lobe consolidation and small presumed hemothorax remain stable. Underlying diffuse bilateral chronic interstitial changes again noted. No pneumothorax. Cardiac silhouette normal. Impression: 1. Stable left lower lobe pleuroparenchymal changes consistent with pneumothorax and atelectasis/contusions. 2. Stable left rib fractures. 3. No obvious new, acute process. Signed by Daron Odom MD 06/10/2017 08:32 A
[2017-06-10] MEDS: SENOKOT S TAB PO SCH ×2 (09:45→20:45)
[2017-06-10] MEDS: CHOLESTYRAMINE 4 GM PWD PKT PO SCH ×4 (09:45→17:42)
[2017-06-10] MEDS: PANTOPRAZOLE 40MG TAB (PROTONIX) PO SCH (09:45)
[2017-06-10] MEDS: LISINOPRIL 40 MG TAB PO SCH (09:45)
[2017-06-10] MEDS: MAGNESIUM OXIDE 400 MG TAB (MAG-OX) PO SCH ×2 (09:45→20:45)
[2017-06-10] MEDS: ASPIRIN 81 MG ENTERIC TAB PO SCH (09:45)
[2017-06-10] MEDS: HEPARIN SOD (PORCINE) 5000 UNITS/ML VIAL SQ SCH ×2 (09:46→20:46)
[2017-06-10] MEDS: amLODIPine 5 MG TAB PO SCH (09:46)
--- NOTE | 2017-06-10 09:59 | IPNPDOC ---
Subjective Date Seen The patient was seen on 06/10/17. Subjective Chief Complaint/HPI The patient is a 87-year-old female admitted with a reason for visit of Miltiple Rib Fractures. General: Denies: Chills, Night Sweats Constitutional: Denies: Chills, Fever Eyes: Denies: Pain ENT: Denies: Head Aches Skin: Denies: Rash, Lesions Pulmonary: Reports: Pleuritic Chest Pain, Denies: Dyspnea, Cough Cardiovascular: Denies: Chest Pain, Palpitations, Orthopnea, Paroxysmal Noc. Dyspnea, Lt Headedness Gastrointestinal: Denies: Nausea, Vomiting, Abdominal Pain, Diarrhea, Constipation Genitourinary: Denies: Dysuria Musculoskeletal: Reports: Other Symptoms (continued left upper rib cage, lateral and superior posterio pain with inhalation and movement) Neurological: Denies: Weakness Psych: Reports: Mood Normal Objective Physical Examination General Exam: Positive: Alert, Cooperative, No Acute Distress Eye Exam: Negative: Sclera icteric ENT Exam: Positive: Atraumatic, Mucous membr. moist/pink Neck Exam: Negative: JVD Chest Exam: Positive: Other (left lower rib cage tenderness upon palpation, somewhat improved from presentation) Heart Exam: Positive: Rate Normal, Normal S1, Normal S2 Abdomen Exam: Positive: Soft, Negative: Tenderness Extremity Exam: Positive: Normal pulses, Negative: Clubbing, Cyanosis, Edema, Tenderness, Swelling Skin Exam: Negative: Rash, Breakdown Neuro Exam: Positive: Normal Speech Psych Exam: Positive: Oriented x 3 Assessment /Plan Assessment 87-year-old female admitted for reason of fall with resulting multiple left- sided rib fractures and hydrothorax 1. Multiple fractured ribs that one flail segment of 4, 5, 6, 7, 8, 9 and possibly 11 with small lung contusion and hemothorax. Dr. Garcia has been consulted and has evaluated the patient, appreciate his help. Has recommended pain control and lung expansion therapy at this point in time. The patient states that she does still have sharp left-sided upper rib and posterior superior thoracic wall pain with ambulation and deep inhalation, states it is worse when her pain medication is wearing off. She does not want to have more aggressive means of pain control such as epidural or MOBILE NURSE. Patient will work with physical/occupational therapy and have patient safety evaluation to go home. Edema and her left leg has gone down on physical exam, ultrasound of lower extremity negative for DVT. Patient was encouraged to use lung expansion therapy at bedside. Chest x-ray from this morning shows a stable left lower lobe pleuro- parenchymal change consistent with pneumothorax and atelectasis/contusions, stable left rib fractures with no obvious new or acute process. Patient on exam today was sitting comfortably on 2 L nasal cannula saturating at 94%. States she is not short of breath. Clinically the patient is improving, however home safety given recurrent falls is a concern. As such, PT/OT have been consulted as well as PFS for functional optimization and help with possibility of short term rehab. Appreciate their help. 2. Hypertension Stable, 138/66 today We'll continue current regimen 3. Depression Continue fluoxetine Plan/VTE VTE Prophylaxis Ordered?: Yes VS, I&O, 24H, Fishbone Vital Signs/I&O Vital Signs Date Time Temp Pulse Resp B/P (MAP) Pulse Ox O2 Delivery O2 Flow Rate FiO2 06/10/17 09:46 66 138/66 06/10/17 08:14 Room Air 06/10/17 08:10 2.0 06/10/17 08:00 98.2 16 94 Laboratory Data 24H LABS Laboratory Tests 2 06/10/17 05:39: Nucleated Red Blood Cells % (auto) 0.0, Anion Gap 7L, Glomerular Filtration Rate 35.1, Blood Urea Nitrogen 33H, Creatinine 1.50H, Sodium Level 145, Potassium Level 4.2, Chloride Level 112H, Carbon Dioxide Level 26, Calcium Level 8.6L, Magnesium Level 1.8 CBC/BMP Laboratory Tests 06/10/17 05:39 Red Blood Count 3.20 L, Mean Corpuscular Volume 95.6, Mean Corpuscular Hemoglobin 30.6, Mean Corpuscular Hemoglobin Concent 32.0, Red Cell Distribution Width 13.6, Calcium Level 8.6 L GME ATTESTATION GME ATTESTATION My faculty preceptor for this patient encounter was physically present during the encounter and was fully available. All aspects of the patient interview, examination, medical decision making process, and medical care plan development were reviewed and approved by the faculty preceptor. The faculty preceptor is aware and concurs with the plan as stated in the body of this note and will attest to such by his/her cosignature. CARA CAMPOS DO Jun 10, 2017 09:59
[2017-06-10] MEDS: FLUoxetine 10 MG CAP PO SCH (11:27)
--- NOTE | 2017-06-10 14:36 | IPN ---
DATE OF SERVICE: 06/10/2017 Mrs. Sen's pain is being well controlled except when she is up and about walking; and even then, it is fairly well controlled with oral analgesics. She is not having any trouble breathing. Her vital signs show a maximum temperature (Tmax) of 98.4 with a heart rate that ranges between 66 and 72 in a sinus rhythm, respiratory rate of 18-20 without the use of accessory muscles, who is 93% saturated between 2 liters nasal cannula on room air. Her blood pressure is ranging between 140/92 to 138/66. Her intake and output over the past 24 hours has been recorded as 1850 in and 500 out for a positivity of 1350 mL. She weighs 51.9 kg today compared to 50.4 kg yesterday. She has taken in 1400 mL in by mouth intake. On physical examination, her lungs show decreased breath sounds with egophony and bronchophony in the left hemithorax, which has increased over the last 24 hours. Percussion note is dull at the left base, more so than it was before. Cardiovascular examination: Is without murmurs, click, gallops, or rubs. I cannot feel her point of maximal impulse (PMI). S1 and S2 are normal. Abdomen: Is soft, nontender. Bowel sounds are positive. There is no hepatomegaly, no costovertebral angle (CVA) tenderness. Extremities: Show no pretibial edema, no calf tenderness, and there is no differential swelling of the upper extremities. She does have 2+ ankle and foot edema on the left and trace to 1+ on the right. Her ankle and foot edema on the left is such that she cannot get her brace on. Her skin is warm, dry, and perfused without cyanosis or mottling, including that of the nail beds and the knees. Neck is supple. There is no jugular venous distention and no subcutaneous emphysema. Trachea is midline. Mouth shows her mucous membranes to be pink and moist. Lips and commissures without lesions. There is no thrush. Eyes show her pupils to be equal and reactive. Extraocular motions intact. Sclerae anicteric. Neurologic shows II-XII intact, along with gross motor and gross sensation intact. Gait is not tested. Psychiatric shows her to be awake and oriented times three with appropriate mood and affect and conversational. Her white count today is down to 9.4 with a hemoglobin and hematocrit of 9.8 and 30.6 down from 10.3 and 32.3 yesterday. There is no differential on her. Her chemistries today show essentially normal electrolytes with a BUN and creatinine which have risen to 33 and 1.5. Calcium is 8.6 with a magnesium of 1.8 and a glucose of 105. Her chest x-ray today shows an increase in the opacity in the left lower hemithorax consistent with an increasing pleural effusion and/or hemothorax. Otherwise, the lungs are fully extended to the chest wall. I do not see infiltrates. IMPRESSION: 1. Multiple fractured ribs with one flail segment of 4, 5, 6, 7, 8, 9, and possibly 11. 2. Small lung contusion, resolving. 3. Hypertension. 4. Hemothorax, increasing. PLAN AND DISCUSSION: I will obtain a CT scan of her today without contrast to compare it with the original CT scan done at [facility] on the day of admission. I suspect that her hemothorax is worse and that she may need drainage hopefully by a pigtail catheter. After I see the CT scan, I will make some further decisions. She is participating in physical therapy. I do not think she is ready to go home in regard to her safety issues. She has a great attitude, however.
[2017-06-10] MEDS ORDERED: SLF 3 ML SYR IV PRN (14:45)
--- NOTE | 2017-06-10 15:29 | REP ---
Clinical: Pleural effusion. Findings: Multiple acute comminuted left rib fractures are identified involving the left fourth through eleventh ribs. Associated moderate left pleural effusion and partial collapse to the left lower lobe is appreciated with minuscule pneumothorax and small amount of subcutaneous emphysema. Small amount of right lower lobe atelectasis and pleural reaction is also appreciated as well as nonacute right eighth and ninth posterior rib fractures. Mediastinum demonstrates atherosclerotic changes to the thoracic aorta and coronary arteries without aortic aneurysm or pericardial effusion. No significant cardiomegaly. Calcified and noncalcified bilateral breast lesions are nonspecific by CT evaluation. No significant axillary adenopathy. Limited upper abdomen demonstrates normal bilateral adrenal glands and evidence for prior cholecystectomy. Impression: 1. Moderate left pleural effusion and partial consolidation / collapse to the left lower lobe along with multiple multipartite left rib fractures. Minuscule left pneumothorax and subcutaneous emphysema. 2. Small amount of right lower lobe atelectasis and small right pleural reaction. 3. Calcified and noncalcified bilateral breast lesions. Signed by Daron Odom MD 06/10/2017 03:20 P
[2017-06-10] MEDS ORDERED: MOM 30ML SUSPENSION UDC PO ONE (17:15)
[2017-06-10] MEDS: SLF 3 ML SYR IV SCH (20:46)
[2017-06-11] MEDS: LEVALBUTEROL 1.25 MG/0.5 ML CONCENTRATE NEB NEB SCH ×4 (01:47→20:00)
[2017-06-11 04:45] VITALS: BP 168/68
[2017-06-11] MEDS: PERCOCET 5MG/325MG TAB PO PRN ×5 (05:15→21:36)
[2017-06-11] MEDS: SLF 3 ML SYR IV SCH ×3 (05:18→21:36)
[2017-06-11 06:10] LABS: CALCIUM LEVEL 9.1 MG/DL (8.8-10.2); CREATININE FOR GFR 1.29 MG/DL (0.55-1.02); GLOMERULAR FILTRATION RATE 41.8 (>32); MAGNESIUM LEVEL 2.5 MG/DL (1.8-2.4); POTASSIUM SERUM 4.5 MEQ/L (3.5-5.1)
[2017-06-11 06:16] LABS: MEAN CORPUSCULAR HGB CONC 31.9 g/dl (32.0-36.5); MEAN CORPUSCULAR VOLUME 97.3 fl (80.0-96.0); PLATELET COUNT, AUTOMATED 331 10^3/uL (150-450); RED CELL DISTRIBUTION WIDTH 13.4 % (11.5-14.5); WHITE BLOOD COUNT 9.8 10^3/uL (4.0-10.0)
[2017-06-11] MEDS: MORPHINE 2 MG/ML 1ML SYRINGE IV PRN (07:33)
[2017-06-11 08:00] VITALS: BP 152/58
[2017-06-11] MEDS: CHOLESTYRAMINE 4 GM PWD PKT PO SCH ×3 (08:22→17:04)
[2017-06-11] MEDS: HEPARIN SOD (PORCINE) 5000 UNITS/ML VIAL SQ SCH ×2 (08:57→21:35)
[2017-06-11] MEDS: FLUoxetine 10 MG CAP PO SCH (09:00)
[2017-06-11] MEDS: ASPIRIN 81 MG ENTERIC TAB PO SCH (09:00)
[2017-06-11] MEDS: SENOKOT S TAB PO SCH ×2 (09:00→21:35)
[2017-06-11] MEDS: PANTOPRAZOLE 40MG TAB (PROTONIX) PO SCH (09:00)
[2017-06-11] MEDS: LISINOPRIL 40 MG TAB PO SCH (09:00)
[2017-06-11] MEDS: amLODIPine 5 MG TAB PO SCH (09:03)
--- NOTE | 2017-06-11 10:03 | REP ---
Clinical: Trauma. Follow-up rib fractures and pleuroparenchymal changes. Technique: PA and lateral. Comparison: 06/10/2017. Findings: Multiple left rib fractures along with bibasilar pleuroparenchymal changes (left greater than right) including elements of atelectasis/consolidation and pleural effusion remain essentially unchanged. No obvious pneumothorax. Cardiac silhouette is normal. Impression: No significant change from prior examination. Signed by Daron Odom MD 06/11/2017 09:55 A
[2017-06-11 13:04] VITALS: BP 186/56
--- NOTE | 2017-06-11 13:09 | IPNPDOC ---
Subjective Date Seen The patient was seen on 06/11/17. Subjective Chief Complaint/HPI The patient is a 87-year-old female admitted with a reason for visit of Miltiple Rib Fractures. General: Reports: Fatigue, Malaise, Normal Appetite, Denies: Chills, Night Sweats Constitutional: Denies: Chills Eyes: Denies: Pain, Vision change Skin: Denies: Rash, Lesions Pulmonary: Reports: Dyspnea, Denies: Cough, Pleuritic Chest Pain Cardiovascular: Denies: Chest Pain, Palpitations, Orthopnea, Paroxysmal Noc. Dyspnea, Edema, Lt Headedness Gastrointestinal: Denies: Nausea, Vomiting, Abdominal Pain Genitourinary: Denies: Dysuria Musculoskeletal: Reports: Back Pain, Other Symptoms (continued pain on left side thorax with extension to posterior superior left side of back) Neurological: Denies: Weakness, Numbness Psych: Reports: Mood Normal Objective Physical Examination General Exam: Positive: Alert, Cooperative, Moderate Distress (from pain in rib cage, states worse overnight and today with movement and inhalation) Eye Exam: Positive: Conjunctiva & lids normal, EOMI, Negative: Sclera icteric, Ptosis ENT Exam: Positive: Atraumatic, Mucous membr. moist/pink, Pharynx Normal, Tongue Midline, Nares Patent, Negative: Pharyngeal Edema Neck Exam: Positive: Supple Chest Exam: Positive: Normal air movement, Other (left upper rib cage tenderness along lateral and superior posterior aspect of thorax), Negative: Rales, Rhonchi, Wheezing, Diminished Heart Exam: Positive: Rate Normal, Normal S1, Normal S2, Negative: Gallops, Murmurs, Rubs Telemetry: Positive: No significant arrhythmia Abdomen Exam: Positive: Normal bowel sounds, Soft, Negative: Tenderness, Hepatospenomegaly, Mass Extremity Exam: Positive: Normal pulses, Negative: Clubbing, Cyanosis, Edema, Tenderness, Swelling Skin Exam: Negative: Rash, Breakdown Neuro Exam: Positive: Normal Speech Psych Exam: Positive: Mental status NL Assessment /Plan Assessment 87-year-old female admitted for reason of fall with resulting multiple left- sided rib fractures and hydrothorax 1. Multiple fractured ribs that one flail segment of 4, 5, 6, 7, 8, 9 and possibly 11 with small lung contusion and hemothorax. Dr. Garcia has been consulted and has evaluated the patient, appreciate his help. Has recommended CT chest to evaluate for need of pigtail catheter, continued pain control and lung expansion therapy. The patient states that she does still have sharp left-sided upper rib and posterior superior thoracic wall pain with ambulation and deep inhalation, states it is worse when her pain medication is wearing off, states that it has worsened overnight and this morning. She does not want to have more aggressive means of pain control such as epidural or [employer], but is utilizing her IV morphine . Patient will work with physical/occupational therapy and have patient safety evaluation to go home. Edema and her left leg is now gone, ultrasound of lower extremity negative for DVT. Patient was encouraged to use lung expansion therapy at bedside. CT CHEST one day ago showed: Moderate left pleural effusion and partial consolidation/collapse the left lower lobe along with multiple multipartite left rib fractures, miniscule left pneumothorax and subcutaneous emphysema. Small amount of right lower lobe atelectasis and small right pleural reaction. Calcified and noncalcified bilateral breast lesions. Chest x-ray from this morning showed no significant change from prior examination Clinically the patient is improving, however home safety given recurrent falls is a concern. As such, PT/OT have been consulted as well as PFS for functional optimization and help with possibility of short term rehab. Appreciate their help. 2. Hypertension Stable, 152/58 today We'll continue current regimen 3. Depression Continue fluoxetine Plan/VTE VTE Prophylaxis Ordered?: Yes VS, I&O, 24H, Codeybonkaci Vital Signs/I&O Vital Signs Date Time Temp Pulse Resp B/P (MAP) Pulse Ox O2 Delivery O2 Flow Rate FiO2 06/11/17 09:03 88 152/58 06/11/17 09:00 22 Nasal Cannula 2.0 06/11/17 08:00 98.2 91 I&O- Last 24 Hours up to 6 AM 06/12/17 06:00 Output Total 50 ml Balance -50 ml Laboratory Data 24H LABS Laboratory Tests 2 06/11/17 05:24: Nucleated Red Blood Cells % (auto) 0.0, Anion Gap 6L, Glomerular Filtration Rate 41.8, Blood Urea Nitrogen 35H, Creatinine 1.29H, Sodium Level 143, Potassium Level 4.5, Chloride Level 109H, Carbon Dioxide Level 28, Calcium Level 9.1, Magnesium Level 2.5H CBC/BMP Laboratory Tests 06/11/17 05:24 Red Blood Count 3.77 L, Mean Corpuscular Volume 97.3 H, Mean Corpuscular Hemoglobin 31.0, Mean Corpuscular Hemoglobin Concent 31.9 L, Red Cell Distribution Width 13.4, Calcium Level 9.1 GME ATTESTATION GME ATTESTATION My faculty preceptor for this patient encounter was physically present during the encounter and was fully available. All aspects of the patient interview, examination, medical decision making process, and medical care plan development were reviewed and approved by the faculty preceptor. The faculty preceptor is aware and concurs with the plan as stated in the body of this note and will attest to such by his/her cosignature. CARA CAMPOS DO Jun 11, 2017 13:08
[2017-06-11] MEDS ORDERED: BISACODYL 10 MG SUPP PR PRN (15:00)
[2017-06-11 16:15] VITALS: BP 141/63
[2017-06-11 16:58] LABS: LDH, BODY FLUID 406 U/L (NOT ESTABLISHED)
[2017-06-11 16:59] LABS: TOTAL PROTEIN, BODY FLUID 3.2 G/DL (NOT ESTABLISHED)
[2017-06-11] MEDS: MIRALAX *UNIT DOSE* 17GM PACKET PO SCH (17:04)
[2017-06-11 17:17] LABS: WBC BODY FLUID 4140 /uL (0-10)
[2017-06-11 17:18] LABS: BF DIFF IF INDICATED? NO (NO); RBC BODY FLUID 350 10^3/uL (<2)
--- NOTE | 2017-06-11 17:32 | REP ---
CHEST, TWO VIEWS: Two views of the chest are performed. COMPARISON: Made with prior study of the same day. There is placement of a pigtail drainage catheter posteriorly in the left hemithorax. The amount of pleural fluid has diminished. There is no pneumothorax. There are no other acute changes. Signed by Sage Zapata MD 06/12/2017 01:52 P
--- NOTE | 2017-06-11 18:11 | REP ---
LEFT ULTRASOUND GUIDED PIGTAIL CATHETER PLACEMENT: The procedure was performed by ARI Yanez under the direct supervision of Dr. Zapata. The procedure along with its risks, benefits, and complications were discussed with the patient prior to the examination. Informed consent was obtained both verbally and written. The patient was identified in the ultrasound suite and placed in a seated position. The left lung was interrogated with ultrasound. An appropriate site was chosen for needle entry and this area was marked, prepped and draped in the usual sterile fashion. A procedural time out was performed to ensure that the correct patient, site and procedure were being performed. Local infiltrative anesthesia was achieved using 1% lidocaine. An #8-Prydeinig skater catheter was advanced through the chest wall and into the pleural fluid. Approximately 60 mL of red fluid were aspirated. This was sent to the lab for further evaluation. Results pending. The pigtail mechanism was activated at this point. The catheter was affixed to the patient's skin and a soft dressing was applied to the entry site. The catheter was then attached to a Pleur-evac system. Soft dressings were applied to the catheter entry site. The patient tolerated the procedure well and had no immediate complications. IMPRESSION: Uncomplicated placement of #8-Prydeinig skater pigtail catheter in the left pleural cavity. Reviewed by ARI Vazquez 06/12/2017 09:55 AEdited and Signed by Sage Zapata MD 06/12/2017 01:49 P
[2017-06-11 20:00] VITALS: BP 134/58
[2017-06-12] VITALS (7 sets, daily range): BP systolic 134–166; BP diastolic 60–70
[2017-06-12] MEDS: LEVALBUTEROL 1.25 MG/0.5 ML CONCENTRATE NEB NEB SCH ×4 (01:32→20:46)
[2017-06-12] MEDS: PERCOCET 5MG/325MG TAB PO PRN ×3 (03:28→20:34)
[2017-06-12 05:43] LABS: MEAN CORPUSCULAR HEMOGLOBIN 30.9 pg (27.0-33.0); MEAN CORPUSCULAR HGB CONC 31.5 g/dl (32.0-36.5); MEAN CORPUSCULAR VOLUME 97.8 fl (80.0-96.0); PLATELET COUNT, AUTOMATED 306 10^3/uL (150-450); RED CELL DISTRIBUTION WIDTH 13.5 % (11.5-14.5)
[2017-06-12 06:03] LABS: CALCIUM LEVEL 8.5 MG/DL (8.8-10.2); CREATININE FOR GFR 1.5 MG/DL (0.55-1.02); GLOMERULAR FILTRATION RATE 35.1 (>32); MAGNESIUM LEVEL 2.9 MG/DL (1.8-2.4); POTASSIUM SERUM 4.8 MEQ/L (3.5-5.1)
[2017-06-12] MEDS: SLF 3 ML SYR IV SCH ×3 (06:14→20:35)
[2017-06-12] MEDS: CHOLESTYRAMINE 4 GM PWD PKT PO SCH ×3 (07:30→17:10)
[2017-06-12] MEDS ORDERED: MAG SULF 1GM/100ML (MAG RUN) 1 GM in APPROPRIATE DILUENT 1 EA IV ONE (08:00)
[2017-06-12] MEDS: amLODIPine 5 MG TAB PO SCH ×2 (08:44→09:05)
--- NOTE | 2017-06-12 08:58 | REP ---
Clinical: Follow up rib fractures and infiltrates. Technique: AP and lateral views. Comparison: 06/11/2017. Findings: Left-sided rib fractures are again identified and essentially stable. A pigtail catheter overlies the left lung base. Left lower lobe opacity suggesting elements of atelectasis and possible small pleural effusion may be minimally improved. Linear right lower lobe atelectasis remains unchanged. No pneumothorax. Impression: 1. Pigtail catheter at the left lung base with decreased left lower lobe atelectasis and pleural fluid. 2. Linear atelectasis in the right lower lobe. Signed by Daron Odom MD 06/12/2017 08:50 A
[2017-06-12] MEDS: PANTOPRAZOLE 40MG TAB (PROTONIX) PO SCH (08:59)
[2017-06-12] MEDS: SENOKOT S TAB PO SCH ×2 (08:59→20:33)
[2017-06-12] MEDS: ASPIRIN 81 MG ENTERIC TAB PO SCH (08:59)
[2017-06-12] MEDS: LISINOPRIL 40 MG TAB PO SCH (09:00)
[2017-06-12] MEDS: FLUoxetine 10 MG CAP PO SCH (09:00)
[2017-06-12] MEDS: HEPARIN SOD (PORCINE) 5000 UNITS/ML VIAL SQ SCH ×2 (09:01→20:34)
[2017-06-12] MEDS: MIRALAX *UNIT DOSE* 17GM PACKET PO SCH (09:01)
--- NOTE | 2017-06-12 10:52 | IPNPDOC ---
Subjective Date Seen The patient was seen on 06/12/17. Subjective Chief Complaint/HPI The patient is a 87-year-old female admitted with a reason for visit of Miltiple Rib Fractures. General: Denies: Chills, Night Sweats Constitutional: Denies: Chills, Fever Eyes: Denies: Pain, Vision change ENT: Denies: Head Aches Skin: Denies: Rash, Lesions Pulmonary: Reports: Dyspnea, Denies: Cough, Pleuritic Chest Pain Cardiovascular: Denies: Chest Pain, Palpitations, Orthopnea, Edema, Lt Headedness Gastrointestinal: Denies: Nausea, Vomiting, Abdominal Pain, Diarrhea, Constipation, Melena, Hematochezia Genitourinary: Denies: Dysuria Neurological: Denies: Weakness, Numbness, Incoordination, Change in speech Psych: Reports: Mood Normal Objective Physical Examination General Exam: Positive: Alert, Cooperative, Mild Distress (pain in rib cage is getting better, much better since one day ago), Negative: Moderate Distress Eye Exam: Positive: Conjunctiva & lids normal, EOMI, Negative: Sclera icteric, Ptosis ENT Exam: Positive: Atraumatic, Mucous membr. moist/pink, Pharynx Normal, Tongue Midline, Nares Patent, Negative: Pharyngeal Edema Neck Exam: Positive: Supple Chest Exam: Positive: Normal air movement, Other (left upper rib cage tenderness along lateral and superior posterior aspect of thorax, a bit improved from one day ago), Negative: Rales, Rhonchi, Wheezing, Diminished Heart Exam: Positive: Rate Normal, Normal S1, Normal S2, Negative: Gallops, Murmurs, Rubs Telemetry: Positive: No significant arrhythmia Abdomen Exam: Positive: Normal bowel sounds, Soft, Negative: Tenderness, Hepatospenomegaly, Mass Extremity Exam: Positive: Normal pulses, Negative: Clubbing, Cyanosis, Edema, Tenderness, Swelling Skin Exam: Negative: Rash, Breakdown Neuro Exam: Positive: Normal Speech Psych Exam: Positive: Mental status NL, Oriented x 3 Assessment /Plan Assessment This is an 87-year-old female admitted for reason of fall with resultin multiple left-sided rib fractures and accompanying hydrothorax. 1. Multiple fractured ribs and hydrothorax -Patient has multiple fractured ribs lateral segment of 4, 5, 6, 7, 8, 9 and possibly 11 with a small lung contusion and hemothorax -Dr. Garcia has been consult and has evaluated the patient, greatly appreciate his help -The patient did receive pigtail catheter one day ago so far has had drainage of 335 mL sanguinous fluid overnight, she states that she is much less short of breath now but does still have pain in her left sided upper ribs and left sided posterior superior thoracic wall with inhalation or movement, somewhat improved from one day ago. She continues to have pain control with morphine and Percocet. -Patient encouraged to continue to use lung expansion therapy at bedside -CXR from this AM showed: Pigtail catheter at the left lung base with decreased left lower lobe atelectasis and pleural fluid, linear atelectasis in the right lower lobe 2. Recurrent falls -According to the patient's daughter, the patient has been having increased falls over the past few months -The patient has not had a good opportunity to work with physical therapy, she' ll work with PT today to ensure that she is safe to go home on d/c, she lives by herself in an assisted living facility 3. Left foot edema and pain -The swelling in her left foot has markedly decreased, she no longer complains of pain in the left foot. -Continue to monitor, this was likely due to her fall, imaging from other facility did not reveal break or fracture Clinically the patient is improving, however home safety is a concern given her history of recurrent falls. such PT has been consulted and PFS for functional optimization and help with possibility of short-term rehabilitation. Appreciate their help. Plan/VTE VTE Prophylaxis Ordered?: Yes VS, I&O, 24H, Fishbone Vital Signs/I&O Vital Signs Date Time Temp Pulse Resp B/P (MAP) Pulse Ox O2 Delivery O2 Flow Rate FiO2 06/12/17 09:05 55 147/65 06/12/17 08:00 99.5 18 92 Nasal Cannula 2.0 I&O- Last 24 Hours up to 6 AM 06/13/17 06:00 Intake Total 240 ml Output Total 50 ml Balance 190 ml Laboratory Data 24H LABS Laboratory Tests 2 06/11/17 16:00: Body Fluid pH 7.511, Body Fluid pH Source PLEURAL, Body Fluid WBC (Auto) 4140H, Body Fluid RBC (Auto) 350, Body Fluid Mononuclear Cells % Auto , Fluid Polymorphonuclear Cell % Auto , Body Fluid Glucose Source PLEURAL, Body Fluid Glucose 117, Body Fluid Protein Source PLEURAL, Body Fluid Total Protein 3.2, Body Fluid Albumin Source PLEURAL, Body Fluid Albumin 1.8, Body Fluid LDH Source PLEURAL, Body Fluid Lactate Dehydrogenase 406, Body Fluid Amylase Source PLEURAL, Body Fluid Amylase 24, Body Fluid Cholesterol 57, Body Fluid Cholesterol Source PLEURAL, Body Fluid Triglyceride Source PLEURAL, Body Fluid Triglycerides 22, Pleural Fluid Source PLEURAL, Pleural Fluid Color RED, Pleural Fluid Appearance TURBID 06/12/17 05:31: Nucleated Red Blood Cells % (auto) 0.0, Anion Gap 4L, Glomerular Filtration Rate 35.1, Blood Urea Nitrogen 38H, Creatinine 1.50H, Sodium Level 143, Potassium Level 4.8, Chloride Level 108H, Carbon Dioxide Level 31, Calcium Level 8.5L, Magnesium Level 2.9H CBC/BMP Laboratory Tests 06/12/17 05:31 Red Blood Count 3.24 L, Mean Corpuscular Volume 97.8 H, Mean Corpuscular Hemoglobin 30.9, Mean Corpuscular Hemoglobin Concent 31.5 L, Red Cell Distribution Width 13.5, Calcium Level 8.5 L Microbiology Microbiology 06/11/17 Acid Fast Stain, Received Pending 06/11/17 Mycobacterial Culture, Received Pending 06/11/17 Fungal Smear, Received Pending 06/11/17 Fungal Culture, Received Pending 06/11/17 Gram Stain - Final, Resulted 06/11/17 Anaerobic Culture, Resulted Pending 06/11/17 Body Fluid Culture, Received Pending GME ATTESTATION GME ATTESTATION My faculty preceptor for this patient encounter was physically present during the encounter and was fully available. All aspects of the patient interview, examination, medical decision making process, and medical care plan development were reviewed and approved by the faculty preceptor. The faculty preceptor is aware and concurs with the plan as stated in the body of this note and will attest to such by his/her cosignature. CARA CAMPOS DO Jun 12, 2017 10:52
--- NOTE | 2017-06-12 14:42 | IPN ---
DATE OF SERVICE: 06/11/2017 Mrs. Sen is sitting fairly comfortably in the chair, undergoing physical therapy. Her chest CT yesterday showed increase of fluid in the costophrenic angle and posterior chest, which is no doubt right hemothorax. Because it is increasing and because she also shows compression of the lower lobe, I will undertake a chest tube catheter with interventional radiology. Her vital signs show a maximum temperature (Tmax) of 99.3 with a heart rate that ranges between 88-66 in a sinus rhythm, respiratory rate of 18-24 without the use of accessory muscles, who is 91-94% saturated on 2 liters nasal cannula and whose blood pressure is ranging between 186/56-134/58. Her intake and output over the past 24 hours has been recorded as 900 in and 1500 out for a negativity of 600 mL. She weighs 51.9 kg today, which is the same as yesterday. On physical examination, her left lung shows egophony and bronchophony in the left lower hemithorax with a dull percussion note. The right lung shows normal vesicular sounds. Cardiac exam is without murmurs, click, gallops, or rubs. I cannot feel her point of maximal impulse (PMI). S1, S2 are normal. Abdomen is soft, nontender. Bowel sounds are positive. There is no hepatomegaly. No costovertebral angle (CVA) tenderness. Extremities show no pretibial edema. No calf tenderness. Her ankle swelling is now much improved down to 1+ on the left side. Skin is warm, dry and perfused, without cyanosis or mottling, including that of the nail beds and the knees. Neck is supple. There is no jugular venous distention. No subcutaneous emphysema. Trachea is midline. Mouth shows her mucous membranes to be pink and moist. Lips and commissures without lesions. There is no thrush. Eyes show her pupils to be equal and reactive. Extraocular motions intact. Sclerae anicteric. Neuro shows II-XII intact, along with gross motor and gross sensation intact. Gait is not tested. Psychiatric shows her to be alert and awake, oriented times three with appropriate mood and affect and conversational. Her white count today is 9.8 with a hemoglobin and hematocrit of 11.7 and 36.7, improved from yesterday of 9.8 and 30.6, probably secondary to hemoconcentration. Platelet count is 331. Chemistries today show normal electrolytes with BUN and creatinine that has improved to 35 and 1.29 from 33 and 1.5 yesterday. Calcium is 9.1 with a glucose of 108. Her chest CT is discussed above. Chest x-ray shows increased blunting of the left costophrenic angle and I cannot see the diaphragmatic border anymore. IMPRESSION: 1. Multiple fractured ribs with one flail segment 4, 5, 6, 7, 8, 9, 10 and possibly 11. 2. Small lung contusion, resolving. 3. Hypertension. 4. Hemothorax, increasing. PLAN AND DISCUSSION: I will send her down today for a pigtail catheter interventional radiology. We will place a Pleur-evac and send it off for requisite studies. She is continuing physical therapy. Hopefully the blood is not clotted. It does not look as if it is a heterogenous mixture of clotted blood on the chest CT.
--- NOTE | 2017-06-12 14:43 | IPN ---
DATE: 06/12/2017 Ms. Sen underwent a chest tube catheter placement yesterday. 60 mL were withdrawn and sent for laboratory examination. Overnight, she has drained 335 mL. She is feeling well and her pain is very well controlled with all the rib fractures. Her vital signs show a T-max of 99.5 with a heart rate that ranges between 71 and 55, and is sinus rhythm, respiratory rate that is constant at 18, who is 96-92% saturated on 2 liters nasal cannula and whose blood pressure is ranging between 142/62 to 147/65. Her intake and output over the past 24 hours has been recorded as 180 in and 760 out for a negative of 580 mL. She has only taken in 180 mL in by mouth intake. She has put out 335 mL from her chest catheter. She weighs 51.5 kilos today compared to 51.9 kilos yesterday. On physical examination, her right lung shows normal vesicular sounds. Left lung shows some coarse rhonchi and rales, which do not clear with coughing at the bottom of the left chest. Percussion note today is full to the diaphragm. I no longer hear egophony or bronchophony. Cardiovascular examination is without murmurs, click, gallops, or rubs. I cannot feel her point of maximal impulse (PMI). S1 and S2 are normal. Abdomen is soft, nontender. Bowel sounds are positive. There is no hepatomegaly, no costovertebral angle (CVA) tenderness. Extremities show no pretibial edema and about 1+ ankle edema and foot edema on the left side, which is again, vastly improved. Skin is warm, dry, and perfused without cyanosis or mottling, including that of the nail beds and the knees. Neck is supple. There is no jugular venous distention and no subcutaneous emphysema. Trachea is midline. Mouth shows her mucous membranes to be pink and moist. Lips and commissures without lesions. There is no thrush. Eyes show her pupils to be equal and reactive. Extraocular motions intact. Sclera nonicteric. Neuro shows II-XII intact, along with gross motor and gross sensation intact. Gait is not tested. Psychiatric shows her to be awake and oriented times three with appropriate mood and affect and conversational. Her white count today is 8.0 with a hemoglobin and hematocrit of 10.0 and 31.7 compared to 11.7 and 36.7 yesterday. Platelet count is 300. Chemistries today show normal electrolytes with a BUN and creatinine of 38 and 1.50, which is up from 35 and 1.29. Calcium is 8.5 with a glucose of 90, and a magnesium of 2.9. Her pleural fluid shows a pH of 7.51 with an LDH of 406 with a corresponding serum LDH of 243. Glucose is 117. She has 4140 white cells. There is no differential. Her chest x-ray today shows clearing of the costophrenic angle. I can now seen the diaphragmatic border. Lung is fully expanded to the chest wall. I see no infiltrates. Chest tube pigtail catheter is in good place. IMPRESSION: 1. Multiple ribs fractures 4, 5, 6, 7, 8, 9, 10 and possibly 11 with one flail segment. 2. Small lung contusion, resolving. 3. Hypertension. 4. Hemothorax, resolved with drainage. PLAN AND DISCUSSION: I will take her off suction today as there is no air leak. She has only drained about 5 mL overnight. Hopefully I will remove the chest catheter tomorrow. She is doing very well with physical therapy, and hopefully she will be ready to go home over the weekend. Her pain again is being fairly well controlled with oral narcotics.
[2017-06-12] MEDS: MORPHINE 2 MG/ML 1ML SYRINGE IV PRN (23:30)
[2017-06-13] MEDS: PERCOCET 5MG/325MG TAB PO PRN ×3 (01:28→20:18)
[2017-06-13] MEDS: LEVALBUTEROL 1.25 MG/0.5 ML CONCENTRATE NEB NEB SCH ×4 (02:00→20:40)
[2017-06-13 04:00] VITALS: BP 131/68
[2017-06-13] MEDS: SLF 3 ML SYR IV SCH ×3 (05:43→21:23)
[2017-06-13 05:52] LABS: MEAN CORPUSCULAR HEMOGLOBIN 30.5 pg (27.0-33.0); MEAN CORPUSCULAR HGB CONC 31.4 g/dl (32.0-36.5); MEAN CORPUSCULAR VOLUME 97.2 fl (80.0-96.0); PLATELET COUNT, AUTOMATED 316 10^3/uL (150-450); RED CELL DISTRIBUTION WIDTH 13.3 % (11.5-14.5); WHITE BLOOD COUNT 6.8 10^3/uL (4.0-10.0)
[2017-06-13 06:13] LABS: CALCIUM LEVEL 8.3 MG/DL (8.8-10.2); CREATININE FOR GFR 1.53 MG/DL (0.55-1.02); GLOMERULAR FILTRATION RATE 34.3 (>32); MAGNESIUM LEVEL 2.6 MG/DL (1.8-2.4); POTASSIUM SERUM 4.8 MEQ/L (3.5-5.1)
[2017-06-13] MEDS: CHOLESTYRAMINE 4 GM PWD PKT PO SCH ×3 (06:21→17:17)
[2017-06-13 08:00] VITALS: BP 104/42
--- NOTE | 2017-06-13 08:35 | REP ---
Clinical: Trauma/rib fractures; follow-up. Comparison: 06/12/2017. Findings: Left rib fractures are stable. Pigtail catheter in the left lung base stable. Mediastinum and cardiac silhouette are within normal limits. Bibasilar pleuroparenchymal changes may be slightly improved when compared to prior examination with minimal basilar atelectasis and no significant pleural effusion. No obvious pneumothorax. No new, acute process. Impression: Stable left rib fractures. Mildly improved aeration to the lung triana with decreased atelectasis and decreased pleural fluid. Signed by Daron Odom MD 06/13/2017 08:27 A
[2017-06-13] MEDS: MIRALAX *UNIT DOSE* 17GM PACKET PO SCH (10:25)
[2017-06-13] MEDS: HEPARIN SOD (PORCINE) 5000 UNITS/ML VIAL SQ SCH ×2 (10:26→20:18)
[2017-06-13] MEDS: LISINOPRIL 40 MG TAB PO SCH (10:26)
[2017-06-13] MEDS: FLUoxetine 10 MG CAP PO SCH (10:26)
[2017-06-13] MEDS: PANTOPRAZOLE 40MG TAB (PROTONIX) PO SCH (10:26)
[2017-06-13] MEDS: ASPIRIN 81 MG ENTERIC TAB PO SCH (10:28)
[2017-06-13] MEDS: amLODIPine 5 MG TAB PO SCH (10:28)
[2017-06-13] MEDS: SENOKOT S TAB PO SCH ×2 (10:28→20:18)
--- NOTE | 2017-06-13 10:38 | IPNPDOC ---
Subjective Date Seen The patient was seen on 06/13/17. Subjective Chief Complaint/HPI The patient is a 87-year-old female admitted with a reason for visit of Miltiple Rib Fractures. General: Reports: Fatigue, Malaise, Denies: Chills, Night Sweats, Normal Appetite Constitutional: Denies: Chills, Fever Eyes: Denies: Pain, Vision change ENT: Denies: Head Aches Skin: Denies: Rash, Lesions Pulmonary: Reports: Dyspnea, Denies: Cough, Pleuritic Chest Pain Cardiovascular: Denies: Chest Pain, Palpitations, Orthopnea, Paroxysmal Noc. Dyspnea, Edema, Lt Headedness Gastrointestinal: Denies: Nausea, Vomiting, Abdominal Pain Genitourinary: Denies: Dysuria Musculoskeletal: Reports: Other Symptoms (continued pain on left side of thorax and superior left posterior back) Neurological: Reports: Weakness, Denies: Numbness, Incoordination Objective Physical Examination General Exam: Positive: Alert, Cooperative, Mild Distress (pain in rib cage is not much better from one day ago, painful still with ambulation and inhalation ) , Negative: Moderate Distress Eye Exam: Positive: Conjunctiva & lids normal, EOMI, Negative: Sclera icteric, Ptosis ENT Exam: Positive: Atraumatic, Mucous membr. moist/pink, Pharynx Normal, Tongue Midline, Nares Patent, Negative: Pharyngeal Edema Neck Exam: Positive: Supple Chest Exam: Positive: Normal air movement, Other (left upper rib cage tenderness along lateral and superior posterior aspect of thorax, not much improved from one day ago), Negative: Rales, Rhonchi, Wheezing, Diminished Heart Exam: Positive: Rate Normal, Normal S1, Normal S2, Negative: Gallops, Murmurs, Rubs Telemetry: Positive: No significant arrhythmia Abdomen Exam: Positive: Normal bowel sounds, Soft, Negative: Tenderness, Hepatospenomegaly, Mass Extremity Exam: Positive: Normal pulses, Negative: Clubbing, Cyanosis, Edema, Tenderness, Swelling Skin Exam: Negative: Rash, Breakdown Neuro Exam: Positive: Normal Speech Psych Exam: Positive: Mental status NL, Oriented x 3 Assessment /Plan Assessment This is an 87-year-old female admitted for reason of fall with resulting multiple left-sided rib fractures and accompanying hydrothorax. 1. Multiple fractured ribs and hydrothorax -Patient has multiple fractured ribs lateral segment of 4, 5, 6, 7, 8, 9 and possibly 11 with a small lung contusion and hemothorax -Dr. Garcia has been consulted and has evaluated the patient, greatly appreciate his help -The patient did receive pigtail catheter which has since had the suction turned off, with possible removal today by Dr. Garcia. -Overnight so far has had drainage of 90 mL serous appearing fluid overnight, she states that she is much less short of breath now but does still have pain in her left sided upper ribs and left sided posterior superior thoracic wall with inhalation or movement, unfortunately not too much improved from one day ago. - She continues to have pain control with morphine and Percocet. She is still requiring IV morphine for pain control at this time. -Patient encouraged to continue to use lung expansion therapy at bedside -CXR from this AM showed stable left sided rib fractures, with mildly improved aeration to lung triana with decreased atelectasis and decreased pleural fluid. 2. Recurrent falls -According to the patient's daughter, the patient has been having increased falls over the past few months -The patient will work with PT today to ensure that she is safe to go home on d/ c, she lives by herself in an assisted living facility 3. Left foot edema and pain -The swelling in her left foot is no longer present, she no longer complains of pain in the left foot. -Continue to monitor, this was likely due to her fall, imaging from other facility did not reveal break or fracture 4. HTN -stable, a bit hypotensive this AM 104/42, normally 131/68 -pt is not dizzy, will continue to monitor -c/w norvasc 5 mg qd & lisinopril 40 qd 5. Depression -c/w home fluoxetine Clinically the patient is improving, however home safety is a concern given her history of recurrent falls. such PT has been consulted and PFS for functional optimization and help with possibility of short-term rehabilitation. Appreciate their help. Plan/VTE VTE Prophylaxis Ordered?: Yes VS, I&O, 24H, Fishbone Vital Signs/I&O Vital Signs Date Time Temp Pulse Resp B/P (MAP) Pulse Ox O2 Delivery O2 Flow Rate FiO2 06/13/17 10:28 58 104/42 06/13/17 08:00 97.4 18 94 Nasal Cannula 2.0 Laboratory Data 24H LABS Laboratory Tests 2 06/13/17 05:33: Nucleated Red Blood Cells % (auto) 0.0, Anion Gap 6L, Glomerular Filtration Rate 34.3, Blood Urea Nitrogen 39H, Creatinine 1.53H, Sodium Level 143, Potassium Level 4.8, Chloride Level 109H, Carbon Dioxide Level 28, Calcium Level 8.3L, Magnesium Level 2.6H CBC/BMP Laboratory Tests 06/13/17 05:33 Red Blood Count 3.21 L, Mean Corpuscular Volume 97.2 H, Mean Corpuscular Hemoglobin 30.5, Mean Corpuscular Hemoglobin Concent 31.4 L, Red Cell Distribution Width 13.3, Calcium Level 8.3 L Microbiology Microbiology 06/11/17 Acid Fast Stain, Received Pending 06/11/17 Mycobacterial Culture, Received Pending 06/11/17 Fungal Smear, Received Pending 06/11/17 Fungal Culture, Received Pending 06/11/17 Gram Stain - Final, Complete 06/11/17 Anaerobic Culture - Final, Complete 06/11/17 Body Fluid Culture - Final, Complete GME ATTESTATION GME ATTESTATION My faculty preceptor for this patient encounter was physically present during the encounter and was fully available. All aspects of the patient interview, examination, medical decision making process, and medical care plan development were reviewed and approved by the faculty preceptor. The faculty preceptor is aware and concurs with the plan as stated in the body of this note and will attest to such by his/her cosignature. CARA CAMPOS DO Jun 13, 2017 10:38
[2017-06-13 12:00] VITALS: BP 150/84
[2017-06-13 16:00] VITALS: BP 148/79
[2017-06-13 20:30] VITALS: BP 144/60
[2017-06-13] MEDS: MORPHINE 2 MG/ML 1ML SYRINGE IV PRN (21:23)
[2017-06-13 23:59] VITALS: BP 142/65
[2017-06-14] MEDS: LEVALBUTEROL 1.25 MG/0.5 ML CONCENTRATE NEB NEB SCH ×4 (01:36→21:41)
[2017-06-14 03:33] VITALS: BP 133/61
[2017-06-14 05:23] LABS: MEAN CORPUSCULAR HEMOGLOBIN 30.5 pg (27.0-33.0); MEAN CORPUSCULAR HGB CONC 31.8 g/dl (32.0-36.5); MEAN CORPUSCULAR VOLUME 95.7 fl (80.0-96.0); PLATELET COUNT, AUTOMATED 372 10^3/uL (150-450); RED CELL DISTRIBUTION WIDTH 13.2 % (11.5-14.5); WHITE BLOOD COUNT 8.6 10^3/uL (4.0-10.0)
[2017-06-14 05:46] LABS: CALCIUM LEVEL 8.6 MG/DL (8.8-10.2); CREATININE FOR GFR 1.38 MG/DL (0.55-1.02); GLOMERULAR FILTRATION RATE 38.7 (>32); MAGNESIUM LEVEL 2.3 MG/DL (1.8-2.4); POTASSIUM SERUM 4.7 MEQ/L (3.5-5.1)
[2017-06-14] MEDS: MORPHINE 2 MG/ML 1ML SYRINGE IV PRN (06:53)
[2017-06-14] MEDS: SLF 3 ML SYR IV SCH ×3 (06:53→20:28)
[2017-06-14] MEDS: CHOLESTYRAMINE 4 GM PWD PKT PO SCH ×3 (06:53→17:52)
[2017-06-14 08:00] VITALS: BP 154/70
[2017-06-14] MEDS: FLUoxetine 10 MG CAP PO SCH (09:16)
[2017-06-14] MEDS: amLODIPine 5 MG TAB PO SCH (09:16)
[2017-06-14] MEDS: HEPARIN SOD (PORCINE) 5000 UNITS/ML VIAL SQ SCH ×2 (09:16→20:27)
[2017-06-14] MEDS: LISINOPRIL 40 MG TAB PO SCH (09:16)
[2017-06-14] MEDS: ASPIRIN 81 MG ENTERIC TAB PO SCH (09:16)
[2017-06-14] MEDS: PANTOPRAZOLE 40MG TAB (PROTONIX) PO SCH (09:16)
[2017-06-14] MEDS: MIRALAX *UNIT DOSE* 17GM PACKET PO SCH (09:17)
[2017-06-14] MEDS: SENOKOT S TAB PO SCH ×2 (09:17→20:28)
--- NOTE | 2017-06-14 09:31 | REP ---
Clinical: Follow up rib fractures. Technique: PA and lateral. Comparison: 06/13/2017. Findings: Left-sided rib fractures are unchanged. Mediastinum and cardiac silhouette are stable and grossly within normal limits. Lung triana demonstrate chronic interstitial changes and minimally improved aeration although linear fibroatelectatic changes in the right lower lobe and left lower lobe/retrocardiac consolidation are again identified. Impression: 1. Improved aeration is suggested. 2. Continued evidence for linear fibroatelectatic changes in the right base and left lower lobe/retrocardiac consolidation. Signed by Daron Odom MD 06/14/2017 09:22 A
--- NOTE | 2017-06-14 10:49 | IPN ---
DATE: 06/13/2017 Ms. Sen is breathing well. Her pain is being well controlled with narcotic analgesia. She has been doing physical therapy (PT). Her vital signs show a maximum temperature (t-max) of 98.9 with a heart rate that ranges between 56 and 64 in a sinus rhythm, respiratory rate of 18, who is 92 to 94% saturated on 2 liters nasal cannula and whose blood pressure is ranging between 150/84 to 104/42. Her intake and output over the past 24 hours has been recorded as only 240 in and 458 out for a negativity of 218 mL. She has put out a 158 mL from the chest tube and there is no air leak. Weight today is 50.4 kilos today compared to 51.5 kilos yesterday. All the output is serous. On physical examination, her lungs show equal breath sounds on either side. There are still some respiratory crackles at the left base. Percussion note is full to the diaphragm. Cardiovascular examination is without murmurs, click, gallops, or rubs. I cannot feel her point of maximal impulse (PMI). S1 and S2 are normal. Abdomen is soft, nontender. Bowel sounds are positive. There is no hepatomegaly, no costovertebral angle (CVA) tenderness. Extremities show no pretibial edema, no calf tenderness, no differential swelling of the upper extremities. Her foot is again much less swollen than it was before. Skin is warm, dry, and perfused without cyanosis or mottling, including that of the nail beds and the knees. Neck is supple. There is no jugular venous distention and no subcutaneous emphysema. Trachea is midline. Mouth shows her mucous membranes to be pink and moist. Lips and commissures without lesions. There is no thrush. Eyes show her pupils to be equal and reactive. Extraocular motions intact. Sclera nonicteric. Neurologic shows II-XII intact, along with gross motor and gross sensation intact. Gait is not tested. Psychiatric shows her to be awake and oriented times three with appropriate mood and affect and conversational. Her white count today is 6.8 with a hemoglobin and hematocrit of 9.8 and 31.2, essentially unchanged from yesterday. Platelet count is 360 and stable. Chemistries show normal electrolytes with a BUN and creatinine of 39 and 1.53, which looks to be her baseline. Glucose is 91 with a calcium of 8.3. Her chest x-ray today shows her lung fully expanded to the chest wall. The left costophrenic angle is sharp. The lateral film shows pigtail catheter to be in good place and with only minimal blunting at the tip of the costophrenic angle. IMPRESSION: 1. Multiple ribs fractures 4, 5, 6, 7, 8, 9, 10 and possibly 11 with one flail segment. 2. Small lung contusion, resolving. 3. Hypertension. 4. Hemothorax, resolved with drainage. PLAN AND DISCUSSION: I will remove her chest tube catheter today. We will follow her with the chest x-rays for the next couple of days. From my perspective, she is almost ready to go home. We can send her home on her chronic analgesia. She will need to be cleared for a home safety evaluation and cleared by physical therapy.
--- NOTE | 2017-06-14 11:19 | IPNPDOC ---
Subjective Date Seen The patient was seen on 06/14/17. Subjective Chief Complaint/HPI The patient is a 87-year-old female admitted with a reason for visit of Miltiple Rib Fractures. General: Denies: Chills, Night Sweats Constitutional: Denies: Chills, Fever Eyes: Denies: Pain, Vision change Skin: Denies: Rash Pulmonary: Reports: Dyspnea, Denies: Cough Cardiovascular: Denies: Chest Pain, Palpitations, Orthopnea, Paroxysmal Noc. Dyspnea, Edema, Lt Headedness Gastrointestinal: Denies: Nausea Musculoskeletal: Reports: Back Pain (left sided thorax and superior medial back pain with inhalation and ambulation, somewhat improved from one day ago) Neurological: Denies: Weakness, Numbness Psych: Reports: Mood Normal Objective Physical Examination General Exam: Positive: Alert, Cooperative, Mild Distress (pain in rib cage is somewhat improved from one day ago, painful still with ambulation and inhalation ), Negative: Moderate Distress Eye Exam: Positive: Conjunctiva & lids normal, EOMI, Negative: Sclera icteric, Ptosis ENT Exam: Positive: Atraumatic, Mucous membr. moist/pink, Pharynx Normal, Tongue Midline, Nares Patent, Negative: Pharyngeal Edema Neck Exam: Positive: Supple Chest Exam: Positive: Normal air movement, Other (left upper rib cage tenderness along lateral and superior posterior aspect of thorax, minimally improved from one day ago), Negative: Rales, Rhonchi, Wheezing, Diminished Heart Exam: Positive: Rate Normal, Normal S1, Normal S2, Negative: Gallops, Murmurs, Rubs Telemetry: Positive: No significant arrhythmia Abdomen Exam: Positive: Normal bowel sounds, Soft, Negative: Tenderness, Hepatospenomegaly, Mass Extremity Exam: Positive: Normal pulses, Negative: Clubbing, Cyanosis, Edema, Tenderness, Swelling Skin Exam: Negative: Rash, Breakdown Neuro Exam: Positive: Normal Speech Psych Exam: Positive: Mental status NL, Oriented x 3 Assessment /Plan Assessment This is an 87-year-old female admitted for reason of fall with resulting multiple left-sided rib fractures and accompanying hydrothorax. 1. Multiple fractured ribs and hydrothorax -Patient has multiple fractured ribs lateral segment of 4, 5, 6, 7, 8, 9 and possibly 11 with a small lung contusion and hemothorax -Dr. Garcia has been consulted and has evaluated the patient, greatly appreciate his help -The patient did receive pigtail catheter which has since been removed one day ago by Dr. Garcia -She states that she is not short of breath now but does still have pain in her left sided upper ribs and left sided posterior superior thoracic wall with inhalation or movement, unfortunately not too much improved from one day ago. - She continues to have pain control with morphine and Percocet. She is still requiring IV morphine for pain control at this time, last use was last evening, it has fallen off and it is prudent to not restart at this time to see if she can tolerate the pain with PO pain medications only, in anticipation for d/c. If she can do this for the next 24 hours and clears PT and is able to be weaned off her supplemental O2., then she can be d/c in AM. Currently on 1 L sat at 96% . -Patient encouraged to continue to use lung expansion therapy at bedside -CXR from this AM showed: improved aeration is suggested with continued evidence for linear fibroatelectatic changes in the right base and left lower lobe/retrocardiac consolidation. 1 2. Recurrent falls -According to the patient's daughter, the patient has been having increased falls over the past few months -The patient will work with PT today to ensure that she is safe to go home on d/ c, she lives by herself in an assisted living facility 3. Left foot edema and pain -The swelling in her left foot is no longer present, she no longer complains of pain in the left foot. -Continue to monitor, this was likely due to her fall, imaging from other facility did not reveal break or fracture 4. HTN -stable 154/70 -pt is not dizzy, will continue to monitor -c/w norvasc 5 mg qd & lisinopril 40 qd 5. Depression -c/w home fluoxetine Clinically the patient is improving, however home safety is a concern given her history of recurrent falls. such PT has been consulted and PFS for functional optimization and help with possibility of short-term rehabilitation. Appreciate their help. Plan/VTE VTE Prophylaxis Ordered?: Yes VS, I&O, 24H, Fishbone Vital Signs/I&O Vital Signs Date Time Temp Pulse Resp B/P (MAP) Pulse Ox O2 Delivery O2 Flow Rate FiO2 06/14/17 11:00 92 Room Air 06/14/17 10:50 1.0 06/14/17 09:16 61 154/70 06/14/17 08:00 98.1 20 I&O- Last 24 Hours up to 6 AM 06/15/17 06:00 Output Total 200 ml Balance -200 ml Laboratory Data 24H LABS Laboratory Tests 2 06/14/17 04:46: Nucleated Red Blood Cells % (auto) 0.0, Anion Gap 5L, Glomerular Filtration Rate 38.7, Blood Urea Nitrogen 34H, Creatinine 1.38H, Sodium Level 143, Potassium Level 4.7, Chloride Level 108H, Carbon Dioxide Level 30, Calcium Level 8.6L, Magnesium Level 2.3 CBC/BMP Laboratory Tests 06/14/17 04:46 Red Blood Count 3.25 L, Mean Corpuscular Volume 95.7, Mean Corpuscular Hemoglobin 30.5, Mean Corpuscular Hemoglobin Concent 31.8 L, Red Cell Distribution Width 13.2, Calcium Level 8.6 L Microbiology Microbiology 06/11/17 Acid Fast Stain, Received Pending 06/11/17 Mycobacterial Culture, Received Pending 06/11/17 Fungal Smear, Received Pending 06/11/17 Fungal Culture, Received Pending 06/11/17 Gram Stain - Final, Complete 06/11/17 Anaerobic Culture - Final, Complete 06/11/17 Body Fluid Culture - Final, Complete GME ATTESTATION GME ATTESTATION My faculty preceptor for this patient encounter was physically present during the encounter and was fully available. All aspects of the patient interview, examination, medical decision making process, and medical care plan development were reviewed and approved by the faculty preceptor. The faculty preceptor is aware and concurs with the plan as stated in the body of this note and will attest to such by his/her cosignature. CARA CAMPOS DO Jun 14, 2017 11:19
[2017-06-14 12:01] VITALS: BP 132/61
--- NOTE | 2017-06-14 15:02 | IPN ---
DATE: 06/14/2017 Ms. Sen continues her physical therapy (PT). She is still taking narcotic analgesia, which is not at all unexpected considering she has many multiple rib fractures. It hurts when she takes a deep breath, but otherwise she is incredibly functional. Her vital signs show a maximum temperature (t-max) of 98.6 with a heart rate that ranges between 61 and 66 in a sinus rhythm, respiratory rate of 16 to 20 without the use of accessory muscles, who is 92 to 95% saturated on 1 to 2 liters of nasal cannula. Blood pressure is 154/70 to 133/61. Her intake and output over the past 24 hours has been recorded as 960 in and 577 out for a positivity of 303 mL. Chest tube was removed yesterday. Weight today is 52.5 kg compared to 50.4 kg yesterday. I am gratified that she is taking in more oral intake. On physical examination, she has some rales and rhonchi on the left side with some decreased breath sounds on the left side. Nonetheless, percussion note is full to the diaphragm. Right lung shows normal vesicular sounds. Cardiac examination is without murmurs, click, gallops, or rubs. I cannot feel her point of maximal impulse (PMI). S1 and S2 are normal. Abdomen is soft, nontender. Bowel sounds are positive. There is no hepatomegaly, no costovertebral angle (CVA) tenderness. Extremities show no pretibial edema, no calf tenderness, no differential swelling of the upper extremities. Skin is warm, dry, and perfused without cyanosis or mottling, including that of the nail beds and the knees. Neck is supple. There is no jugular venous distention and no subcutaneous emphysema. Trachea is midline. Mouth shows her mucous membranes to be pink and moist. Lips and commissures without lesions. There is no thrush. Eyes show her pupils to be equal and reactive. Extraocular motions intact. Sclera nonicteric. Neurologic shows II-XII intact, along with gross motor and gross sensation intact. Gait is not tested. Psychiatric shows her to be awake and oriented times three with appropriate mood and affect and conversational. Her white count today is 8.6 with a hemoglobin and hematocrit of 9.9 and 31.1 and a platelet count of 372. Hemoglobin and hematocrit are unchanged and the platelet count is stable. Electrolytes are normal with a BUN and creatinine of 34 and 1.38, glucose of 88 with a calcium of 8.6. Magnesium is 2.3. Her chest x-ray shows her lung fully expanded to the chest wall. The costophrenic angles are sharp. Her multiple rib fractures can clearly be seen on the PA film. I see no other infiltrates. IMPRESSION: 1. Multiple rib fractures 4, 5, 6, 7, 8, 9, 10 and possibly 11 with one flail segment. 2. Small lung contusion, resolved. 3. Hypertension. 4. Hemothorax, resolved with drainage. 5. Hypomagnesemia. Treated by the medical service and resolved. PLAN AND DISCUSSION: From my perspective, she should be ready to go home as soon as she can ambulate safely and pass a home safety evaluation. It is not surprising that she still is taking occasional narcotic analgesia considering the number of rib fractures. She is doing remarkably well. I would have expected a much more shelly and stormy course for someone her age with this many fractures.
[2017-06-14] MEDS: PERCOCET 5MG/325MG TAB PO PRN ×2 (15:45→20:28)
[2017-06-14 16:45] VITALS: BP 140/60
[2017-06-14 22:00] VITALS: BP 102/58
[2017-06-15] MEDS: LEVALBUTEROL 1.25 MG/0.5 ML CONCENTRATE NEB NEB SCH ×5 (02:00→23:59)
[2017-06-15] MEDS: PERCOCET 5MG/325MG TAB PO PRN ×4 (03:41→21:50)
[2017-06-15] MEDS: SLF 3 ML SYR IV SCH ×3 (05:16→21:50)
[2017-06-15 05:48] LABS: MEAN CORPUSCULAR HEMOGLOBIN 30.6 pg (27.0-33.0); MEAN CORPUSCULAR HGB CONC 31.3 g/dl (32.0-36.5); MEAN CORPUSCULAR VOLUME 97.9 fl (80.0-96.0); PLATELET COUNT, AUTOMATED 415 10^3/uL (150-450); WHITE BLOOD COUNT 8.3 10^3/uL (4.0-10.0)
[2017-06-15 06:00] VITALS: BP 105/56
[2017-06-15 06:12] LABS: CALCIUM LEVEL 8.9 MG/DL (8.8-10.2); CREATININE FOR GFR 1.39 MG/DL (0.55-1.02); GLOMERULAR FILTRATION RATE 38.4 (>32); MAGNESIUM LEVEL 2.4 MG/DL (1.8-2.4); POTASSIUM SERUM 4.3 MEQ/L (3.5-5.1)
[2017-06-15] MEDS: CHOLESTYRAMINE 4 GM PWD PKT PO SCH ×3 (07:43→17:11)
[2017-06-15] MEDS: SENOKOT S TAB PO SCH ×2 (08:43→21:49)
[2017-06-15] MEDS: PANTOPRAZOLE 40MG TAB (PROTONIX) PO SCH (08:43)
[2017-06-15] MEDS: FLUoxetine 10 MG CAP PO SCH (08:43)
[2017-06-15] MEDS: LISINOPRIL 40 MG TAB PO SCH (08:43)
[2017-06-15] MEDS: amLODIPine 5 MG TAB PO SCH (08:43)
[2017-06-15] MEDS: ASPIRIN 81 MG ENTERIC TAB PO SCH (08:44)
[2017-06-15] MEDS: MIRALAX *UNIT DOSE* 17GM PACKET PO SCH (08:44)
[2017-06-15] MEDS: HEPARIN SOD (PORCINE) 5000 UNITS/ML VIAL SQ SCH ×2 (08:44→21:49)
--- NOTE | 2017-06-15 10:03 | REP ---
Clinical: Follow up left rib fractures and pneumothorax. Comparison: 06/14/2017. Technique: PA and lateral. Findings: Left rib fractures unchanged. No obvious pneumothorax. Partial collapse/consolidation involving the left lower lobe and opacities in the right mid lung zone are similar to prior examination. No obvious new acute process identified. Cardiac silhouette is stable/normal. Impression: No significant change from prior examination. Continued evidence for partial collapse/consolidation of the left lower lobe and subtle opacities in the right mid lung zone. Signed by Daron Odom MD 06/15/2017 09:54 A
--- NOTE | 2017-06-15 11:35 | IPNPDOC ---
Subjective Date Seen The patient was seen on 06/15/17. Subjective Chief Complaint/HPI The patient is a 87-year-old female admitted with a reason for visit of [place] Rib Fractures. General: Denies: Chills, Night Sweats Constitutional: Denies: Chills, Fever, Malaise, Weakness, Fatigue Eyes: Denies: Pain, Vision change Skin: Denies: Rash Pulmonary: Denies: Dyspnea, Cough Cardiovascular: Denies: Chest Pain, Palpitations, Orthopnea, Paroxysmal Noc. Dyspnea, Edema, Lt Headedness Gastrointestinal: Denies: Nausea, Vomiting, Abdominal Pain, Diarrhea, Constipation Musculoskeletal: Reports: Other Symptoms (left sided thorax and chest pain with ambulation/movement, greatly improved ) Neurological: Denies: Weakness, Numbness Psych: Reports: Mood Normal Objective Physical Examination General Exam: Positive: Alert, Cooperative, Mild Distress (pain in rib cage is much improved from one day ago, still somewhat painful still with ambulation ), Negative: Moderate Distress Eye Exam: Positive: Conjunctiva & lids normal, EOMI, Negative: Sclera icteric ENT Exam: Positive: Atraumatic, Mucous membr. moist/pink, Pharynx Normal, Tongue Midline, Nares Patent, Negative: Pharyngeal Edema Neck Exam: Positive: Supple Chest Exam: Positive: Normal air movement, Other (left upper rib cage tenderness along lateral and superior posterior aspect of thorax, much improved from one day ago), Negative: Rales, Rhonchi, Wheezing, Diminished Heart Exam: Positive: Rate Normal, Normal S1, Normal S2, Negative: Gallops, Murmurs, Rubs Telemetry: Positive: No significant arrhythmia Abdomen Exam: Positive: Normal bowel sounds, Soft, Negative: Tenderness, Hepatospenomegaly, Mass Extremity Exam: Positive: Normal pulses, Negative: Clubbing, Cyanosis, Edema, Tenderness, Swelling Skin Exam: Negative: Rash, Breakdown Neuro Exam: Positive: Normal Speech Psych Exam: Positive: Mental status NL, Oriented x 3 Assessment /Plan Assessment This is an 87-year-old female admitted for reason of fall with resulting multiple left-sided rib fractures and accompanying hydrothorax. 1. Multiple fractured ribs and hydrothorax -Patient has multiple fractured ribs lateral segment of 4, 5, 6, 7, 8, 9 and possibly 11 with a small lung contusion and hemothorax -Dr. Garcia has been consulted and has evaluated the patient, greatly appreciate his help -The patient did receive pigtail catheter which has since been removed two days ago by Dr. Garcia -She states that she is not short of breath now and has much improved pain in her left sided upper ribs and left sided posterior superior thoracic wall with inhalation, some pain still present with movement,she is no longer requiring IV morphine for pain control - She continues to have pain control w/ Percocet. She is also not using supplimental Oxygen and is saturating in the low 90's. -Unfortunately she was seen by PT yesterday and apparently they did not feel safe to send her home, PT will work with her again today, she has history of recent multiple falls, she needs to be safe for d/c home with ambulation and cleared to do so by PT -Patient encouraged to continue to use lung expansion therapy at bedside -CXR from this AM showed: No significant change from prior examination, continued evidence for partial collapse/consolidation of the left lower lobe and subtle opacities in the right mid lung zone. 2. Recurrent falls -According to the patient's daughter, the patient has been having increased falls over the past few months -The patient was not felt to be safe to go home by PT yesterday, PT will work with her again today to ensure that she is safe to go home on d/c, she lives by herself in an assisted living facility 3. Left foot edema and pain -The swelling in her left foot is no longer present, she no longer complains of pain in the left foot. -Continue to monitor, this was likely due to her fall, imaging from other facility did not reveal break or fracture 4. HTN -stable, a bit soft this morning at 105/56 -pt is not dizzy, will continue to monitor -c/w norvasc 5 mg qd & lisinopril 40 qd 5. Depression -c/w home fluoxetine Clinically the patient is improving, however home safety is a concern given her history of recurrent falls. such PT has been consulted and PFS for functional optimization and help with possibility of short-term rehabilitation. She has to be cleared from a safety point due to hx of falls, to go home. Appreciate their help. Plan/VTE VTE Prophylaxis Ordered?: Yes VS, I&O, 24H, Fishbone Vital Signs/I&O Vital Signs Date Time Temp Pulse Resp B/P (MAP) Pulse Ox O2 Delivery O2 Flow Rate FiO2 06/15/17 09:18 14 06/15/17 08:48 Room Air 06/15/17 08:43 56 105/56 06/15/17 06:00 98.0 94 06/14/17 12:01 2.0 I&O- Last 24 Hours up to 6 AM 06/16/17 06:00 Intake Total 360 ml Balance 360 ml Laboratory Data 24H LABS Laboratory Tests 2 06/15/17 05:14: Nucleated Red Blood Cells % (auto) 0.0, Anion Gap 7L, Glomerular Filtration Rate 38.4, Blood Urea Nitrogen 35H, Creatinine 1.39H, Sodium Level 142, Potassium Level 4.3, Chloride Level 107, Carbon Dioxide Level 28, Calcium Level 8.9, Magnesium Level 2.4 CBC/BMP Laboratory Tests 06/15/17 05:14 Red Blood Count 3.27 L, Mean Corpuscular Volume 97.9 H, Mean Corpuscular Hemoglobin 30.6, Mean Corpuscular Hemoglobin Concent 31.3 L, Red Cell Distribution Width 13.0, Calcium Level 8.9 Microbiology Microbiology 06/11/17 Acid Fast Stain, Received Pending 06/11/17 Mycobacterial Culture, Received Pending 06/11/17 Fungal Smear, Received Pending 06/11/17 Fungal Culture, Received Pending 06/11/17 Gram Stain - Final, Complete 06/11/17 Anaerobic Culture - Final, Complete 06/11/17 Body Fluid Culture - Final, Complete GME ATTESTATION GME ATTESTATION My faculty preceptor for this patient encounter was physically present during the encounter and was fully available. All aspects of the patient interview, examination, medical decision making process, and medical care plan development were reviewed and approved by the faculty preceptor. The faculty preceptor is aware and concurs with the plan as stated in the body of this note and will attest to such by his/her cosignature. CARA CAMPOS DO Jun 15, 2017 11:35
[2017-06-15 14:00] VITALS: BP 125/58
[2017-06-15 22:00] VITALS: BP 131/63
[2017-06-16] MEDS: PERCOCET 5MG/325MG TAB PO PRN ×2 (05:17→16:33)
[2017-06-16] MEDS: SLF 3 ML SYR IV SCH ×3 (05:18→22:00)
[2017-06-16 06:00] VITALS: BP 145/65
--- NOTE | 2017-06-16 07:13 | IPN ---
DATE: 06/15/2017 Patient has been moved to [facility] last night from the PCU. She is doing quite well. She is taking one Percocet for pain control. She is still being evaluated and treated by physical therapy for potential discharge. Her vital signs show a T-max of 98.0 with a heart rate that ranges between 56 and 61, with a regular rate and rhythm, a blood pressure that is ranging between 105/56 to 132/61 with a respiratory rate of 14-17 without the use of accessory muscles who is 94% saturated on room air. Her intake and output over the past 24 hours has been recorded as 660 in and 400 out for a positivity of 260 mL. She weighs 48.8 kilos today compared to 52.5 kilos yesterday. The weight today is on a different scale on a different floor. On physical examination, her lungs show normal vesicular sounds on the right side with some faint inspiratory rales at the end of inspiration on the left side. Percussion note is full to the diaphragm. Cardiac examination has a grade 2/6 systolic ejection murmur heard best at the left sternal border. I cannot feel her point of maximal impulse (PMI). S1 and S2 are normal. Abdomen is soft, nontender. Bowel sounds are positive. There is no hepatomegaly, no costovertebral angle (CVA) tenderness. Extremities show no pretibial edema, no calf tenderness, and there is no differential swelling of the upper extremities. Her foot edema is all but gone. Skin is warm, dry, and perfused without cyanosis or mottling, including that of the nail beds and the knees. Neck is supple. There is no jugular venous distention and no subcutaneous emphysema. Trachea is midline. Mouth shows her mucous membranes to be pink and moist. Lips and commissures without lesions. There is no thrush. Eyes show her pupils to be equal and reactive. Extraocular motions intact. Sclera nonicteric. Neurologic shows II-XII intact, along with gross motor and gross sensation intact. Gait is not tested. Psychiatric shows her to be awake and oriented times three with appropriate mood and affect and conversational. Her white count today is 8.3 with a hemoglobin and hematocrit of 10.0 and 32.0, unchanged from yesterday, with a platelet count of 415. Electrolytes are normal with a BUN and creatinine of 35 and 1.39, unchanged from yesterday, with a calcium of 8.9 and a magnesium of 2.4. Glucose is 98. Her chest x-ray shows the lung fully expanded to the chest wall. The costophrenic angles are sharp with minimal blunting on the lateral film. I see no other infiltrates. IMPRESSION: 1. Multiple rib fractures 4, 5, 6, 7, 8, 9, 10 and possibly 11 with one flail segment. 2. Small lung contusion, resolved. 3. Hypertension. 4. Hemothorax, resolved with drainage. 5. Hypomagnesemia, treated and resolved. PLAN AND DISCUSSION: As soon as she is safe to go home and is able to ambulate well, from a thoracic surgical perspective, I can see no reason why she should not be discharged. I will see her back in a week to 10 days after discharge in post hospitalization followup.
[2017-06-16] MEDS: LEVALBUTEROL 1.25 MG/0.5 ML CONCENTRATE NEB NEB SCH ×3 (07:15→19:25)
[2017-06-16] MEDS: CHOLESTYRAMINE 4 GM PWD PKT PO SCH ×3 (07:42→17:34)
[2017-06-16] MEDS: SENOKOT S TAB PO SCH ×2 (09:13→21:37)
[2017-06-16] MEDS: PANTOPRAZOLE 40MG TAB (PROTONIX) PO SCH (09:13)
[2017-06-16] MEDS: amLODIPine 5 MG TAB PO SCH (09:13)
[2017-06-16] MEDS: ASPIRIN 81 MG ENTERIC TAB PO SCH (09:13)
[2017-06-16] MEDS: MIRALAX *UNIT DOSE* 17GM PACKET PO SCH (09:14)
[2017-06-16] MEDS: FLUoxetine 10 MG CAP PO SCH (09:14)
[2017-06-16] MEDS: LISINOPRIL 40 MG TAB PO SCH (09:14)
[2017-06-16] MEDS: HEPARIN SOD (PORCINE) 5000 UNITS/ML VIAL SQ SCH ×2 (09:14→21:37)
--- NOTE | 2017-06-16 09:22 | REP ---
Clinical: Rib fractures. Technique: PA and lateral. Comparison: 06/15/2017. Findings: Mediastinum and cardiac silhouette are stable. Left-sided rib fractures are unchanged. Left lower lobe/retrocardiac consolidations suggesting element of left lower lobe collapse and possible small effusion remains stable. Small opacities in the right mid to lower lung zone may be slightly improved from prior examination. No pneumothorax. No new acute process. Diffuse chronic changes remain stable. Impression: No significant change from prior examination. As above. Signed by Daron Odom MD 06/16/2017 09:13 A
[2017-06-16 13:53] LABS: MEAN CORPUSCULAR HEMOGLOBIN 30.5 pg (27.0-33.0); MEAN CORPUSCULAR HGB CONC 31.4 g/dl (32.0-36.5); MEAN CORPUSCULAR VOLUME 97.2 fl (80.0-96.0); PLATELET COUNT, AUTOMATED 471 10^3/uL (150-450); RED CELL DISTRIBUTION WIDTH 13.2 % (11.5-14.5); WHITE BLOOD COUNT 9.5 10^3/uL (4.0-10.0)
[2017-06-16 14:00] VITALS: BP 130/53
[2017-06-16 14:06] LABS: CREATININE FOR GFR 1.45 MG/DL (0.55-1.02); GLOMERULAR FILTRATION RATE 36.5 (>32)
[2017-06-16 14:10] LABS: POTASSIUM SERUM 5.5 MEQ/L (3.5-5.1)
--- NOTE | 2017-06-16 18:18 | IPN ---
DATE: 06/16/2017 SUBJECTIVE: The patient is seen and examined in the room today. Patient stated her pain is under very good control. The patient is able to almost resume her daily activities of living. However, the patient continues to work with physical therapy and patient feels that she has improved function with those actions. No overnight events reported. OBJECTIVE: VITAL SIGNS: Temperature is 98.4, pulse 61, respirations 18, blood pressure 145/65, pulse oximetry 92% on room air. GENERAL: No sign of acute distress. Alert and oriented times three. HEENT: Normocephalic, atraumatic. Extraocular motor grossly intact. CARDIOVASCULAR: Positive S1, S2. Positive heart murmur. LUNGS: There are some fine crackles on the left lung. No wheezes appreciated. ABDOMEN: Soft, nontender, nondistended. Bowel sounds present. EXTREMITIES: No edema. No sign of cyanosis. LABORATORY DATA: WBC is 9.5, hemoglobin 10.7, hematocrit 34.1, platelet count 471. Sodium 140, potassium 4.5, chloride 107, carbon dioxide 27, BUN 31, creatinine 1.45, GFR 36.5, fasting glucose 116, calcium nine. ASSESSMENT AND PLAN: 1. Multiple rib fractures with small lung contusion. 2. Hemothorax status post chest tube insertion. 3. Recurrent falls. 4. Lower extremity edema 5. Hypertension. 6. Depression. PLAN: Currently the patient is fortunately approaching her baseline. The case is discussed with physical therapy. The patient will need one more session of physical therapy. We are hopeful that patient may be discharged home tomorrow. The patient's pain is very well controlled with the current pain medication regimen. The patient does not need any intravenous (IV) pain medication anymore. If patient remains stable, the patient will be discharged tomorrow. JONO
[2017-06-16 19:48] LABS: MEAN CORPUSCULAR HGB CONC 32.1 g/dl (32.0-36.5); MEAN CORPUSCULAR VOLUME 96.7 fl (80.0-96.0); PLATELET COUNT, AUTOMATED 434 10^3/uL (150-450); WHITE BLOOD COUNT 8.7 10^3/uL (4.0-10.0)
[2017-06-16 20:17] LABS: CALCIUM LEVEL 8.9 MG/DL (8.8-10.2); CREATININE FOR GFR 1.45 MG/DL (0.55-1.02); GLOMERULAR FILTRATION RATE 36.5 (>32); POTASSIUM SERUM 4.4 MEQ/L (3.5-5.1)
[2017-06-16 22:00] VITALS: BP 138/64
[2017-06-17] MEDS: LEVALBUTEROL 1.25 MG/0.5 ML CONCENTRATE NEB NEB SCH ×2 (00:15→07:01)
[2017-06-17] MEDS: PERCOCET 5MG/325MG TAB PO PRN ×2 (02:40→12:16)
[2017-06-17 06:00] VITALS: BP 142/67
[2017-06-17] MEDS: CHOLESTYRAMINE 4 GM PWD PKT PO SCH (06:35)
[2017-06-17] MEDS: SLF 3 ML SYR IV SCH (06:35)
[2017-06-17 08:00] VITALS: BP 148/65
[2017-06-17] MEDS ORDERED: PANT40TA2 PO (09:10)
[2017-06-17] MEDS ORDERED: PERCOCET PO (09:10)
[2017-06-17 10:02] VITALS: BP 148/65
[2017-06-17] MEDS: PANTOPRAZOLE 40MG TAB (PROTONIX) PO SCH (10:02)
[2017-06-17] MEDS: LISINOPRIL 40 MG TAB PO SCH (10:02)
[2017-06-17] MEDS: SENOKOT S TAB PO SCH (10:02)
[2017-06-17] MEDS: FLUoxetine 10 MG CAP PO SCH (10:02)
[2017-06-17] MEDS: amLODIPine 5 MG TAB PO SCH (10:02)
[2017-06-17] MEDS: ASPIRIN 81 MG ENTERIC TAB PO SCH (10:03)
[2017-06-17] MEDS: HEPARIN SOD (PORCINE) 5000 UNITS/ML VIAL SQ SCH (10:04)
[2017-06-17] MEDS: MIRALAX *UNIT DOSE* 17GM PACKET PO SCH (10:04)
--- NOTE | 2017-06-17 18:58 | DSES ---
DATE OF ADMISSION: 06/08/2017 DATE OF DISCHARGE: 06/17/2017 PRIMARY CARE PROVIDER: Cherie Land BANKRUPTCY MANAGER: Dr. Romeo Garcia PROCEDURES: pigtail catheter placement. DISCHARGE DIAGNOSES: 1. Multiple rib fractures with lung contusion. 2. Hemothorax status post pigtail placement. 3. Recurrent fall. 4. Lower extremity edema. 5. Hypertension. 6. Depression. HOSPITALIZATION COURSE: The patient is an 87-year-old female, was transferred from [facility] to [facility] on 06/08/2017 after a fall, and the patient was found to have multiple rib fractures and lung contusion. The patient was also found to have a hemothorax and cardiothoracic surgeon, Dr. Garcia, consulted. The patient was started on oral and intravenous (IV) pain medications to achieve pain control. Later, repeated CT of the chest was performed, and the patient was found to have worsening hemothorax. On 06/11/2017 , the patient had an ultrasound-guided pigtail catheter placement, and Dr. Garcia has been assisting on the pigtail catheter management. The patient continued to work with physical therapy. With pigtail placement, the patient showed continuous symptomatic improvement. Chest tube was removed on 06/13/2017, and the patient's pain medications continued being adjusted. Later, the patient was able to manage her pain with oral formulation only. The patient continued to work with physical therapy. On 06/17/2017, the patient passed a physical therapy evaluation, and the patient was determined to be stable for discharge with recommendation to followup with the primary care provider within 1 week and the patient was recommended to followup with Dr. Garcia in 7-10 days. VITAL SIGNS ON THE DAY OF DISCHARGE: Temperature 97.9, pulse 69, respirations 18 , blood pressure is 148/65, pulse oximetry is 94% in room air. LABORATORY DATA ON THE DAY OF DISCHARGE: WBC 8.9, hemoglobin 10.2, hematocrit 31.8, platelet count is 434. Sodium is 142, potassium 4.4, chloride is 108, carbon dioxide 27, BUN 29, creatinine is 1.45, GFR is 36.5, fasting glucose 104, calcium is 8.9. Microbiology: Pleural fluid culture preliminary result showed no growth. Cytology for the pleural fluid showed negative for any malignancy. Pathology of the pleural fluid showed reactive mesothelial cells and mixed acute and chronic inflammatory cells. IMAGING STUDIES: Chest x-ray on 06/08/2017 showed multiple left rib fractures. Suspect small left apical pneumothorax. Bilateral lower extremity Doppler on 06/09/2017 showed no evidence of deep vein thrombosis (DVT) of bilateral lower extremity femoral popliteal venous system. CT of the chest without contrast on 06/02/2017 showed moderate left pleural effusion and partial consolidation/collapse due to the left lower lobe along with multiple left rib fractures. Miniscule left pneumothorax and subcutaneous emphysema. Small amount of right lower lobe atelectasis and small right pleural reaction. Calcified and non-calcified bilateral breast lesions. Chest x-ray on 06/12/2017 showed pigtail catheter at the left lung base with decreased left lower lobe atelectasis and pleural effusion. Linear atelectasis in the right lower lobe. Chest x-ray on 06/16/2017 showed no significant change from prior examinations. Left-sided rib fractures are unchanged. Left lower lobe/retrocardiac consolidation suggesting element of left lower lobe collapse and possible small effusion remain stable. No pneumothorax. Diffuse chronic changes remain stable. DISCHARGE MEDICATIONS: - Percocet two tablets by mouth every 4 hours as needed for 7 days - pantoprazole 40 mg by mouth daily - amlodipine 5 mg by mouth daily - aspirin 81 mg by mouth daily - cholestyramine 4 grams by mouth before food (a.c.) - Prozac 10 mg by mouth daily - hydrochlorothiazide 25 mg by mouth twice a week - lisinopril 40 mg by mouth daily DISCHARGE INSTRUCTIONS: Discontinue line. Discharge home. Activity as tolerated. Low salt diet as tolerated. Patient should followup with primary care provider, Cherie Land, within 1 week. The patient should followup with Dr. Romeo Garcia in 7-10 days. DISCHARGE CONDITION: Stable. DISCHARGE TIME: Greater than 30 minutes. MTDD
== END 2017-06-17 12:25 | disposition home health service (06) | DRG 183 ==
LOC: M PCU 15:00 → M MS5PR 06-14 16:34
PROVIDERS: ADMIT Hospitalist; ATTEND Internal Medicine
PROC: 0W9B30Z Drainage of Left Pleural Cavity with Drainage Device, Percutaneous Approach (ICD-10-PCS; principal; 2017-06-11)
DX: S22.5XXA Flail chest, initial encounter for closed fracture (principal); S27.1XXA Traumatic hemothorax, initial encounter; S27.321A Contusion of lung, unilateral, initial encounter; I10 Essential (primary) hypertension; R29.6 Repeated falls; R60.0 Localized edema; F32.9 Major depressive disorder, single episode, unspecified; W01.198A Fall on same level from slipping, tripping and stumbling with subsequent striking against other object, initial encounter; Y92.480 Sidewalk as the place of occurrence of the external cause; Y93.01 Activity, walking, marching and hiking; Y99.9 Unspecified external cause status; Z79.82 Long term (current) use of aspirin; Z79.899 Other long term (current) drug therapy; Z90.710 Acquired absence of both cervix and uterus; Z90.49 Acquired absence of other specified parts of digestive tract; Z98.41 Cataract extraction status, right eye; Z98.42 Cataract extraction status, left eye

== ENCOUNTER → 2017-06-24 | Outpatient (CLI) | payer MEDICARE, OTHER ==
[~2017-06-24] MED LIST changes: +AMLO5TAB2 PO; +ARTI99.0 OU; +CHOL4PW PO; +FLORCAP10 PO; +PANT40TA2 PO; +PROZ10CA7 PO
--- NOTE | 2017-06-24 10:30 | REP ---
CHEST, TWO VIEWS: HISTORY: Rib fracture. There has been a decrease in the left lower lobe atelectasis or infiltrate. The right lung is clear. The cardiac silhouette is enlarged. The pulmonary vasculature is normal in appearance. There are multiple left rib fractures unchanged compared to the previous study. IMPRESSION: 1. Left lower lobe atelectasis or infiltrate, decreased compared to the previous study. 2. Cardiomegaly. 3. Multiple left rib fractures unchanged. Signed by Ben Macias MD 06/24/2017 10:34 A
== END ==
LOC: M SMT 09:36
PROVIDERS: ATTEND Thoracic Surgery (Cardiothoracic Vascular Surgery)
DX: S22.42XD Multiple fractures of ribs, left side, subsequent encounter for fracture with routine healing (principal)